=== PATIENT | female | born 1985 | race Caucasian/White ===

== ENCOUNTER 2017-09-02 19:08 | Emergency (ER) | payer OTHER ==
[2017-09-02 19:47] LABS: BILIRUBIN,URINE NEGATIVE (NEGATIVE); GLUCOSE, URINE (UA) NEGATIVE (NEGATIVE); KETONES,URINE (UA) NEGATIVE (NEGATIVE); LEUKOCYTE ESTERASE, URINE NEGATIVE (NEGATIVE); NITRITE,URINE NEGATIVE (NEGATIVE); OCCULT BLOOD,URINE NEGATIVE (NEGATIVE); PROTEIN,URINE NEGATIVE (NEGATIVE); UROBILINOGEN,URINE 0.2 (NORMAL) E.U./dL (NORMAL)
[2017-09-02 19:59] LABS: CLARITY,URINE CLEAR (CLEAR)
[2017-09-02] MEDS ORDERED: ONDANSETRON ODT 4 MG TABLET TL STA (20:14)
[2017-09-02] MEDS ORDERED: DICYCLOMINE 10 MG CAPSULE PO STA (20:25)
[2017-09-02] MEDS ORDERED: ACETAMINOPHEN 325 MG TABLET PO STA (20:25)
--- NOTE | 2017-09-02 20:55 | XRAY Report ---
EXAM: ABDOMINAL SERIES AND PA CHEST EXAM DATE: 09/02/2017 08:36 PM. CLINICAL HISTORY: Hx of hernia and multiple adhesions. Abdominal pain. COMPARISON: None. TECHNIQUE: 2 views abdomen and 1 view chest. FINDINGS: CHEST: Lungs/Pleura: No focal opacities. No effusion or pneumothorax. Mediastinum: Within exam limitations, cardiomediastinal contour is normal. ABDOMEN: Bowel Gas Pattern: Within normal limits. No dilated loops or abnormal fluid levels. Moderate stool i n the descending colon. Free Air: None. IMPRESSION: Within normal limits. [facility] Referring Provider Line: [phone] SITE ID: [id number]
--- NOTE | 2017-09-02 20:55 | XRAY Preliminary Report ---
Exam: XR ABDOMEN ACUTE IMPRESSION: Within normal limits. [facility] SITE ID: [id number]
--- NOTE | 2017-09-02 21:29 | ED Physician Documentation ---
PD HPI ABD PAIN - Stated complaint Stated Complaint: ABD PX/NAUSEA - Chief complaint Chief Complaint: Abd Pain - History obtained from History obtained from: Patient - History of Present Illness Timing - onset: How many weeks ago (3) Timing - details: Gradual onset, Intermittant Quality: Cramping, Aching Location: LLQ Associated symptoms: Diarrhea. No: Nausea, Vomiting Similar symptoms before: Work up / diagnostics Recently seen: Not recently seen - Additional information Additional information: Patient is a 31 year old female with a history of past adhesions and a reported hernia who is presenting to the emergency department for abdominal pain. patient states that she has had left lower quadrant pain for a few weeks. patient states that today she felt generally weak and nauseated as well with the pain. patient states that her is going to get deployed again so she wanted to come in and get checked out. Review of Systems Constitutional: reports: Fever, Chills, Myalgias Eyes: denies: Decreased vision Ears: denies: Ear pain, Drainage/discharge Nose: denies: Rhinorrhea / runny nose, Congestion Throat: denies: Dental pain / toothache, Oral lesions / sores Cardiac: denies: Chest pain / pressure Respiratory: denies: Cough, Wheezing GI: reports: Abdominal Pain, Nausea, Diarrhea. denies: Vomiting : denies: Dysuria, Frequency, Hesitancy Skin: denies: Rash, Lesions Neurologic: reports: Generalized weakness. denies: Focal weakness, Numbness, Difficulty speaking Psychiatric: denies: Depressed, Suicidal Immunocompromised: denies: Immunocompromised PD PAST MEDICAL HISTORY - Past Medical History Past Medical History: Yes Cardiovascular: None Respiratory: None Neuro: Headache/migraine Endocrine/Autoimmune: None GI: GERD ACCESS DIRECTOR: Endometriosis : None HEENT: None Psych: Anxiety, Post traumatic stress disorder Musculoskeletal: None Derm: None - Past Surgical History Past Surgical History: Yes General: Other /ACCESS DIRECTOR: section, Hysterectomy, Oophrectomy - Present Medications Home Medications: Ambulatory Orders Medication Instructions Recorded Confirmed Lisdexamfetamine Dimesylate 60 mg PO DAILY #15 capsule 10/11/15 09/02/17 [Vyvanse] Omeprazole [PriLOSEC] 20 mg PO DAILY 10/11/15 09/02/17 Sertraline HCl [Zoloft] 100 mg PO DAILY 10/11/15 09/02/17 Cetirizine [ZyrTEC] 10 mg PO DAILY #30 tablet 10/20/15 09/02/17 Fluticasone/Salmeterol [Advair 2 puffs INH DAILY 09/02/17 09/02/17 100-50 Diskus] Loratadine [Claritin] 1 tab PO DAILY 09/02/17 09/02/17 Montelukast [Singulair] 1 tab PO DAILY 09/02/17 09/02/17 Ondansetron Odt [Zofran] 4 mg TL Q6H PRN #14 tablet 09/02/17 buPROPion [Wellbutrin Sr] 1 tab PO DAILY 09/02/17 09/02/17 - Allergies Allergies/Adverse Reactions: Allergies Allergy/AdvReac Type Severity Reaction Status Date / Time No Known Drug Allergies Allergy Verified 09/02/17 19:21 - Social History Does the pt smoke?: No Smoking Status: Never smoker Does the pt drink ETOH?: No Does the pt have substance abuse?: No - Immunizations Immunizations are current?: No Immunizations: TDAP >10years/unknown - POLST Patient has POLST: No PD ED PE NORMAL - Vitals Vital signs reviewed: Yes - General General: Alert and oriented X 3, No acute distress, Well developed/nourished - HEENT HEENT: Atraumatic, PERRL, Moist mucous membranes - Neck Neck: Supple, no meningeal sign - Cardiac Cardiac: RRR, No murmur - Respiratory Respiratory: No respiratory distress, Clear bilaterally - Abdomen Abdomen: Soft, Non distended - Derm Derm: Normal color, Warm and dry, No rash - Extremities Extremities: No deformity, Normal ROM s pain - Neuro Neuro: Alert and oriented X 3, No motor deficit, No sensory deficit, Normal speech - Psych Psych: Normal mood PD ED PE EXPANDED - Abdomen Abdomen: Tender to palpation, LLQ. No: Rebound, Guarding Results - Vitals Vitals: Vital Signs - 24 hr 09/02/17 09/02/17 19:21 21:47 Temperature 36.4 C L 37.1 C Heart Rate 72 54 L Respiratory 16 18 Rate Blood Pressure 165/100 H 151/98 H O2 Saturation 96 98 Oxygen O2 Source Room air - Labs Labs: Laboratory Tests 09/02/17 19:40 Urine Color YELLOW Urine Clarity CLEAR Urine pH 6.0 Ur Specific [place] <=1.005 Urine Protein NEGATIVE Urine Glucose (UA) NEGATIVE Urine Ketones NEGATIVE Urine Occult Blood NEGATIVE Urine Nitrite NEGATIVE Urine Bilirubin NEGATIVE Urine Urobilinogen 0.2 (NORMAL) Ur Leukocyte Esterase NEGATIVE Ur Microscopic Review NOT INDICATED Urine Culture Comments NOT INDICATED - Rads (name of study) abdominal x-rays Radiology: Final report received, EMP read contemporaneously (within normal limits) PD MEDICAL DECISION MAKING - ED course Complexity details: reviewed old records, reviewed results, re-evaluated patient , considered differential, d/w patient ED course: Patient was seen and examined at bedside. Urine was collected. patient was treated with zofran and tylenol. Imaging was ordered and within normal limits. patient was made aware of the findings. Patient's pain had improved. patient required no further inpatient work up at this time and was stable for discharge with outpatient follow up. Departure - Departure Disposition: 01 Home, Self Care Clinical Impression: Abdominal pain Condition: Good Instructions: ED Abdominal Pain Unkn Cause Follow-Up: Biju Kurtz MD [Primary Care Provider] - Within 3 Days Prescriptions: Ondansetron Odt [Zofran] 4 mg TL Q6H PRN #14 tablet PRN Reason: Nausea / Vomiting Comments: Your diagnostics today were within normal limits. There is no sign of acute obstruction. You are probably starting to get sick with a virus. You can take the zofran as needed for nausea and over the counter cold and flu medications. You should follow up with your doctor for referral for general surgeon for hernia repair. You may return to the emergency department at any time for new, worsening or uncontrollable symptoms. Discharge Date/Time: 09/02/17 21:50
[2017-09-02 21:50] VITALS: BP 151/98
== END 2017-09-02 21:50 | disposition home or self-care (01) ==
LOC: ED 19:08
DX: R10.32 Left lower quadrant pain (principal)
CPT/HCPCS: 74022; 81003; 99283; A9270; Q0162; 81001; 87086

== ENCOUNTER 2017-09-27 08:48 | Outpatient (CLI) | payer OTHER ==
[2017-09-27 11:38] LABS: BASOPHILS % (AUTO) 0.7 %; EOSINOPHILS % (AUTO) 0.5 %; HGB - HEMOGLOBIN 13.2 g/dL (12.0-16.0); LYMPHOCYTES # (AUTO) 1.5 10^3/uL (1.5-3.5); MEAN CORPUSCULAR HEMOGLOBIN 33.5 pg (27.0-31.0); MEAN CORPUSCULAR HGB CONC 34.5 g/dL (32.0-36.0); MEAN CORPUSCULAR VOLUME 96.9 fL (81.0-99.0); MEAN PLATELET VOLUME 7.2 fL (7.9-10.8); MONOCYTES # (AUTO) 0.4 10^3/uL (0.0-1.0); MONOCYTES % (AUTO) 8.6 %; NEUTROPHILS # (AUTO) 2.7 10^3/uL (1.5-6.6); NEUTROPHILS % (AUTO) 58.2 %; PLT - PLATELET COUNT 295 10^3/uL (130-450); RED BLOOD COUNT 3.94 10^6/uL (4.20-5.40); WHITE BLOOD COUNT 4.6 x10^3/uL (4.8-10.8)
[2017-09-27 12:35] LABS: ALBUMIN 4.7 g/dL (3.2-5.5); ALBUMIN/GLOBULIN RATIO 1.6 (1.0-2.2); ALKALINE PHOSPHATASE 46 IU/L (42-121); ALT ALANINE AMINOTRANSFERASE 18 IU/L (10-60); AST ASPARTATE AMINOTRANSFERASE 21 IU/L (10-42); BILIRUBIN,TOTAL 0.8 mg/dL (0.2-1.0); BUN - BLOOD UREA NITROGEN 12 mg/dL (6-20); CALCIUM 9.2 mg/dL (8.5-10.3); CARBON DIOXIDE - CO2 25 mmol/L (21-32); CHLORIDE 100 mmol/L (101-111); CHOLESTEROL 177 mg/dL; CREATININE 0.9 mg/dL (0.4-1.0); GFR - MDRD 72 (>89); GLUCOSE 88 mg/dL (70-100); HDL CHOLESTEROL 86 mg/dL; SODIUM 137 mmol/L (135-145); TOTAL PROTEIN 7.7 g/dL (6.7-8.2); VLDL CHOLESTEROL 10 mg/dL
[2017-09-27 12:36] LABS: CHOL/HDL RATIO 2.1 (<4.4); LDL CHOLESTEROL,CALCULATED 81 mg/dL; LDL/HDL RATIO 0.9 (<4.4)
[2017-09-27 12:47] LABS: THYROID STIMULATING HORMONE 0.89 uIU/mL (0.34-5.60)
[2017-09-27 13:15] LABS: FOLLICLE STIMULATING HORMONE 14.48 mIU/mL
== END 2017-09-27 08:49 | disposition home or self-care (01) ==
LOC: LAB.F 08:48
PROVIDERS: ATTEND Family Medicine
DX: Z00.00 Encounter for general adult medical examination without abnormal findings (principal); E28.39 Other primary ovarian failure
CPT/HCPCS: 36415; 80053; 80061; 83001; 83721; 84443; 85025

== ENCOUNTER 2018-02-24 11:00 | Outpatient (CLI) | payer OTHER ==
--- NOTE | 2018-02-24 12:38 | XRAY Report ---
Procedure Date: 02/24/2018 Accession Number: [id number] / [id number] Procedure: XR - Skull Complete CPT Code: FULL RESULT: EXAM: Skull Complete DATE: 02/24/2018 11:21 AM CLINICAL HISTORY: SKULL LESION COMPARISON: Sinus film 02/08/2018 TECHNIQUE: AP, Turner, bilateral lateral views. FINDINGS: Bones: Normal. No fractures or bone lesions. Sinuses: Normal. No opacities or fluid levels. Other: Normal. No soft tissue swelling. IMPRESSION: Normal skull radiography. No evident skull lesion. [facility]
== END 2018-02-24 11:01 | disposition home or self-care (01) ==
LOC: DI 11:00
PROVIDERS: ATTEND Family Medicine
DX: M89.9 Disorder of bone, unspecified (principal)
CPT/HCPCS: 70260

== ENCOUNTER 2018-05-08 09:47 | Emergency (ER) | payer OTHER ==
[2018-05-08 09:57] VITALS: BP 119/83
--- NOTE | 2018-05-08 11:10 | XRAY Report ---
Reason: coughed up bright blood. Procedure Date: 05/08/2018 Accession Number: [id number] / [id number] Procedure: XR - Chest 2 View X-Ray CPT Code: 98736 FULL RESULT: EXAM: CHEST RADIOGRAPHY EXAM DATE: 05/08/2018 11:04 AM. CLINICAL HISTORY: Coughed up bright blood. COMPARISON: Abdomen acute 09/02/2017 8:26 PM. TECHNIQUE: 2 views. FINDINGS: Lungs/Pleura: No focal opacities evident. No pleural effusion. No pneumothorax. Normal volumes. Mediastinum: Heart and mediastinal contours are unremarkable. Other: None. IMPRESSION: No acute cardiopulmonary abnormality. [facility]
[2018-05-08] MEDS ORDERED: DEXAMETHASONE 10 MG/ML VIAL PO STA (11:23)
--- NOTE | 2018-05-08 11:26 | ED Physician Documentation ---
PD HPI URI - Stated complaint Stated Complaint: COUGHING UP BLOOD - Chief complaint Chief Complaint: Heent - History obtained from History obtained from: Patient - History of Present Illness Timing - onset: How many days ago (3) Timing duration: Days (3) Timing details: Gradual onset, Still present Associated symptoms: Nasal congestion, Rhinorrhea, Dry cough, Hemoptysis, Dyspnea. No: Fever, Chills, Sweats Contributing factors: No: Sick contact Improves by: MDI/nebulizer Worsened by: Activity Similar symptoms before: Diagnosis (asthma) Recently seen: Not recently seen - Additional information Additional information: 32-year-old female with a history of asthma that is well controlled with use of an Advair inhaler has not had her Advair inhaler for more than a month. She recently developed a cough and nasal congestion she has had a lot of clear drainage from the nose she has had a little bit of a sore throat and some ear pain as well associated with this and she coughed hard enough 3 days ago to cough up some blood. She has continued congestion and is concerned about the blood in the sputum. She states that it was a small amount of blood and this is continued to have a small amount of pink tinge to her sputum. Her pharmacy is out of her Advair and she states that she usually uses her rescue inhaler about 3 times per week and she has not had to use that anymore often than that with this onset of symptoms. 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 : None HEENT: None Psych: Anxiety, Post traumatic stress disorder Musculoskeletal: None Derm: None Other Past Medical History: 2001 diagnosed with latent tuberculosis, was on medication for a month - Past Surgical History Past Surgical History: Yes General: Other /ROOM SERVICE MANAGER: section, Hysterectomy, Oophrectomy - Present Medications Home Medications: Ambulatory Orders Medication Instructions Recorded Confirmed Lisdexamfetamine Dimesylate 60 mg PO DAILY #15 capsule 10/11/15 09/02/17 [Vyvanse] Omeprazole [PriLOSEC] 20 mg PO DAILY 10/11/15 09/02/17 Fluticasone/Salmeterol [Advair 2 puffs INH DAILY 09/02/17 09/02/17 100-50 Diskus] Loratadine [Claritin] 1 tab PO DAILY 09/02/17 09/02/17 Montelukast [Singulair] 1 tab PO DAILY 09/02/17 09/02/17 buPROPion [Wellbutrin Sr] 1 tab PO DAILY 09/02/17 09/02/17 Lisinopril 10 mg PO 05/08/18 - Allergies Allergies/Adverse Reactions: Allergies Allergy/AdvReac Type Severity Reaction Status Date / Time No Known Drug Allergies Allergy Verified 05/08/18 09:57 - Social History Does the pt smoke?: No Smoking Status: Never smoker Does the pt drink ETOH?: Yes ETOH Use: Wine Does the pt have substance abuse?: No - Immunizations Immunizations are current?: No Immunizations: TDAP >10years/unknown - POLST Patient has POLST: No PD ED PE NORMAL - Vitals Vital signs reviewed: Yes (hypertensive mild ) - General General: Alert and oriented X 3, No acute distress, Well developed/nourished - HEENT HEENT: Atraumatic, PERRL, EOMI, Ears normal, Moist mucous membranes, Pharynx benign, Dentition benign - Neck Neck: Supple, no meningeal sign, No bony TTP - Cardiac Cardiac: RRR, No murmur - Respiratory Respiratory: No respiratory distress, Other (course breath sounds bilat. Chest wall pain laterally and posteriorly on the left ) - Abdomen Abdomen: Soft, Non tender - Back Back: No CVA TTP, No spinal TTP - Derm Derm: Normal color, Warm and dry, No rash - Extremities Extremities: No deformity, No edema - Neuro Neuro: Alert and oriented X 3, No motor deficit, No sensory deficit, Normal speech Eye Opening: Spontaneous Motor: Obeys Commands Verbal: Oriented GCS Score: 15 - Psych Psych: Normal mood, Normal affect Results - Vitals Vitals: Vital Signs - 24 hr 05/08/18 09:55 Temperature 36.2 C L Heart Rate 62 Respiratory 16 Rate Blood Pressure 119/83 H O2 Saturation 99 Oxygen O2 Source Room air - Rads (name of study) 2 view chest Radiology: Prelim report reviewed (Impression: No acute cardiopulmonary abnormality. ), EMP read indepedently, See rad report PD MEDICAL DECISION MAKING - ED course Complexity details: reviewed old records, considered differential, d/w patient ED course: 32-year-old female with a history of asthma has had nasal congestion cough clear phlegm from the nose and shortness of breath. She has been off of her Advair inhaler for more than a month. She has coughed up some blood and has a chest x- ray which is unremarkable. Here in the emergency department she has some nasal quality to her voice but otherwise has no inflammation to the TMs or pharynx and no yellow drainage. I suspect her symptoms are all allergy related and we have given her dose of dexamethasone here in the emergency department and she will start back on her Advair inhaler. - Sepsis Event Vital Signs: Vital Signs - 24 hr 05/08/18 09:55 Temperature 36.2 C L Heart Rate 62 Respiratory 16 Rate Blood Pressure 119/83 H O2 Saturation 99 Oxygen O2 Source Room air Departure - Departure Disposition: Home, Self Care Clinical Impression: Allergic asthma Qualifiers: Asthma severity: mild Asthma persistence: intermittent Asthma complication type: with acute exacerbation Qualified Code(s): J45.21 - Mild intermittent asthma with (acute) exacerbation Condition: Stable Instructions: ED Reactive Airway Disease Follow-Up: Biju Kurtz MD [Primary Care Provider] -
[2018-05-08] MEDS ORDERED: CHERRY SYRUP 10 ML UDC PO ONE (11:42)
== END 2018-05-08 11:50 | disposition home or self-care (01) ==
LOC: ED 09:47
DX: J45.21 Mild intermittent asthma with (acute) exacerbation (principal)
CPT/HCPCS: 71046; 99282; A9270

== ENCOUNTER 2018-08-02 10:29 | Emergency (ER) | payer OTHER ==
--- NOTE | 2018-08-02 12:31 | CT Report ---
Reason: fall head Procedure Date: 08/02/2018 Accession Number: [id number] / [id number] Procedure: CT - Head W/O CPT Code: FULL RESULT: EXAM: CT HEAD EXAM DATE: 08/02/2018 12:02 PM. CLINICAL HISTORY: Fall, hit head, pain COMPARISON: None. TECHNIQUE: Multiaxial CT images were obtained from the foramen magnum to the vertex. Reformats: Sagittal and coronal. IV contrast: None. In accordance with CT protocol optimization, one or more of the following dose reduction techniques were utilized for this exam: automated exposure control, adjustment of mA and/or KV based on patient size, or use of iterative reconstructive technique. FINDINGS: Parenchyma: No acute intracranial abnormality identified. No acute hemorrhage, mass-effect, or midline shift. Almonet-white differentiation appears maintained. Extraaxial Spaces: No acute extra-axial collection. Ventricles: Normal in size and position. Sinuses and Orbits: Imaged paranasal sinuses, orbits, and mastoids show no significant abnormality. Bones: No depressed skull fracture. Other: None. IMPRESSION: No acute intracranial abnormality identified. [facility]
--- NOTE | 2018-08-02 13:08 | ED Physician Documentation ---
PD HPI HEAD INJURY - Stated complaint Stated Complaint: HEAD INJ WITH VOMITING - Chief complaint Chief Complaint: Neuro - History obtained from History obtained from: Patient - History of Present Illness Mechanism of head injury: Fell Where head injury occurred: Home Timing - onset: How many days ago (5) Pain level max: 6 Pain level now: 0 Location of injury: Front Quality of pain: Throbbing Associated symptoms: Nausea / vomiting. No: LOC, AMS, Amnesia, Neck pain, Paresthesias, Seizures, Ear drainage, Nasal drainage Symptoms improve with: Nothing Symptoms worsen with: Other (Nothing) Contributing factors: No: Anticoagulated, Intoxicated Similar symptoms before: Has not had sx before Recently seen: Not recently seen - Additional information Additional information: 32-year-old female with history of hypertension related to her preeclampsia years ago, endometriosis resulting to hysterectomy here with complaint of tripping over a lawnmower at her house while she was walking in the dark 5 days ago. Patient stated she landed front first on her forehead. Since then she has had frontal headache that was not going away And she feels she is kind of slow in doing things. She stated she had one episode of vomiting on Tuesday and another one on Tuesday. However she thought it might have been related to her taking Motrin. Review of Systems Ten Systems: 10 systems reviewed and negative Constitutional: denies: Fever, Chills, Myalgias Eyes: denies: Loss of vision Nose: denies: Congestion Musculoskeletal: denies: Neck pain, Back pain, Extremity pain Neurologic: reports: Headache, Head injury. 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 : None HEENT: None Psych: Anxiety, Post traumatic stress disorder Musculoskeletal: None Derm: None - Past Surgical History Past Surgical History: Yes General: Other /PERSONAL INJURY ATTORNEY: section, Hysterectomy, Oophrectomy - Present Medications Home Medications: Ambulatory Orders Medication Instructions Recorded Confirmed Lisdexamfetamine Dimesylate 60 mg PO DAILY #15 capsule 10/11/15 09/02/17 [Vyvanse] Omeprazole [PriLOSEC] 20 mg PO DAILY 10/11/15 09/02/17 Fluticasone/Salmeterol [Advair 2 puffs INH DAILY 09/02/17 09/02/17 100-50 Diskus] Loratadine [Claritin] 1 tab PO DAILY 09/02/17 09/02/17 Montelukast [Singulair] 1 tab PO DAILY 09/02/17 09/02/17 buPROPion [Wellbutrin Sr] 1 tab PO DAILY 09/02/17 09/02/17 RX: Lisinopril 10 mg PO 05/08/18 RX: Doxycycline Hyclate 08/02/18 Sumatriptan Succinate [Imitrex] PRN 08/02/18 - Allergies Allergies/Adverse Reactions: Allergies Allergy/AdvReac Type Severity Reaction Status Date / Time No Known Drug Allergies Allergy Verified 08/02/18 10:45 - Social History Does the pt smoke?: No Smoking Status: Never smoker Does the pt drink ETOH?: Yes Does the pt have substance abuse?: No - Immunizations Immunizations are current?: No Immunizations: TDAP >10years/unknown - POLST Patient has POLST: No PD ED PE NORMAL - Vitals Vital signs reviewed: Yes - General General: Alert and oriented X 3, No acute distress, Well developed/nourished - HEENT HEENT: Atraumatic, PERRL, EOMI, Ears normal, Moist mucous membranes, Pharynx benign - Neck Neck: Supple, no meningeal sign, No bony TTP - Cardiac Cardiac: RRR, No murmur - Respiratory Respiratory: Clear bilaterally - Abdomen Abdomen: Normal bowel sounds, Soft, Non tender, Non distended - Back Back: No CVA TTP, No spinal TTP - Derm Derm: Warm and dry - Extremities Extremities: No deformity - Neuro Neuro: Alert and oriented X 3, mechanical designer 2-12 intact, No motor deficit, No sensory deficit, Normal speech - Psych Psych: Normal mood, Normal affect Results - Vitals Vitals: Vital Signs - 24 hr 08/02/18 08/02/18 10:41 13:09 Temperature 36.8 C 36.6 C Heart Rate 72 70 Respiratory 16 16 Rate Blood Pressure 146/92 H 138/74 H O2 Saturation 100 100 Oxygen O2 Source Room air PD MEDICAL DECISION MAKING - ED course Complexity details: reviewed results, re-evaluated patient, considered differential, d/w patient ED course: 1300 patient sitting in the chair in no acute distress reading a book. States does not require any pain medication. No nausea or vomiting in the ER. Patient was informed of negative CT head scan.Discussed care for close head injury and possibly concussion. Departure - Departure Disposition: 01 Home, Self Care Clinical Impression: Concussion Qualifiers: Encounter type: initial encounter Loss of consciousness presence/duration: without LOC Qualified Code(s): S06.0X0A - Concussion without loss of consciousness, initial encounter Head injury Qualifiers: Encounter type: initial encounter Qualified Code(s): S09.90XA - Unspecified injury of head, initial encounter Condition: Stable Instructions: ED Concussion, ED Head Injury Closed Comments: You may take Tylenol or Motrin for pain. Take it easy. Avoid falling or getting hurt too soon. Maintain safety. Follow-up with your primary doctor in a week or 2 if worse return to the emergency room. Discharge Date/Time: 08/02/18 13:09
[2018-08-02 14:24] VITALS: BP 138/74
== END 2018-08-02 13:09 | disposition home or self-care (01) ==
LOC: ED 10:29
DX: S06.0X0A Concussion without loss of consciousness, initial encounter (principal); W18.09XA Striking against other object with subsequent fall, initial encounter; Y93.01 Activity, walking, marching and hiking; Y92.009 Unspecified place in unspecified non-institutional (private) residence as the place of occurrence of the external cause
CPT/HCPCS: 70450; 99282; 99283

== ENCOUNTER 2018-09-14 12:23 | Emergency (ER) | payer OTHER ==
--- NOTE | 2018-09-14 13:19 | XRAY Report ---
Reason: cough, exacerbation of asthma Procedure Date: 09/14/2018 Accession Number: [id number] / [id number] Procedure: XR - Chest 2 View X-Ray CPT Code: 89274 FULL RESULT: EXAM: CHEST RADIOGRAPHY EXAM DATE: 09/14/2018 12:53 PM. CLINICAL HISTORY: Cough, exacerbation of asthma. COMPARISON: Chest 2 views 05/08/2018 10:53 AM. TECHNIQUE: 2 views. FINDINGS: Lungs/Pleura: No focal opacities evident. No pleural effusion. No pneumothorax. Normal volumes. Mediastinum: Heart and mediastinal contours are unremarkable. Other: None. IMPRESSION: Normal 2-view chest radiography. [facility]
--- NOTE | 2018-09-14 14:08 | ED Physician Documentation ---
PD HPI DYSPNEA - Stated complaint Stated Complaint: DIFF BREATHING - Chief complaint Chief Complaint: Resp - History obtained from History obtained from: Patient - History of Present Illness Timing - onset: How many weeks ago (6) Timing - onset during: Rest Timing - duration: Weeks (6) Timing - details: Gradual onset, Still present, Waxing and waning Inciting event(s): Allergic rxn/anaphylaxis Improved by: Inhaler/neb Worsened by: Exertion, Coughing Associated symptoms: Cough, Wheezing. No: Palpitations, Diaphoresis, Bilateral edema, Unilateral edema Similar symptoms before: Diagnosis (asthma) Recently seen: Not recently seen - Additional information Additional information: 33-year-old female with a history of persistent allergic asthma has had an increase in her cough for the past 6 weeks and she has had to use her rescue inhaler 4 times today. She went to go see her doctor and was told to come to the emergency department. She is not coughing up any phlegm she has not had a fever and she denies any sore throat or myalgias. Review of Systems Constitutional: denies: Fever, Chills Eyes: denies: Decreased vision Ears: denies: Ear pain Nose: reports: Congestion. 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: Endometriosis : None HEENT: None Psych: Anxiety, Post traumatic stress disorder Musculoskeletal: None Derm: None - Past Surgical History Past Surgical History: Yes General: Other /BUSINESS DEVELOPMENT ENGINEER: section, Hysterectomy, Oophrectomy - Present Medications Home Medications: Ambulatory Orders Medication Instructions Recorded Confirmed Lisdexamfetamine Dimesylate 60 mg PO DAILY #15 capsule 10/11/15 09/02/17 [Vyvanse] Omeprazole [PriLOSEC] 20 mg PO DAILY 10/11/15 09/02/17 Fluticasone/Salmeterol [Advair 2 puffs INH DAILY 09/02/17 09/02/17 100-50 Diskus] Loratadine [Claritin] 1 tab PO DAILY 09/02/17 09/02/17 Montelukast [Singulair] 1 tab PO DAILY 09/02/17 09/02/17 buPROPion [Wellbutrin Sr] 1 tab PO DAILY 09/02/17 09/02/17 Lisinopril 10 mg PO 05/08/18 Doxycycline Hyclate 08/02/18 Sumatriptan Succinate [Imitrex] PRN 08/02/18 Albuterol 2.5 mg INH Q4H PRN #30 neb 09/14/18 predniSONE [Deltasone] 10 mg PO ONCE #26 tablet 09/14/18 - Allergies Allergies/Adverse Reactions: Allergies Allergy/AdvReac Type Severity Reaction Status Date / Time seasonal allergies Allergy Unknown Uncoded 08/24/18 10:39 - Social History Does the pt smoke?: No Smoking Status: Never smoker Does the pt drink ETOH?: Yes Does the pt have substance abuse?: No - Immunizations Immunizations are current?: No Immunizations: TDAP >10years/unknown - POLST Patient has POLST: No PD ED PE NORMAL - Vitals Vital signs reviewed: Yes (hypertensive mild ) - General General: Alert and oriented X 3, No acute distress, Well developed/nourished, Other (nasal quality to voice. ) - HEENT HEENT: Atraumatic, PERRL, EOMI, Ears normal, Moist mucous membranes, Pharynx benign, Dentition benign - Neck Neck: Supple, no meningeal sign, No bony TTP - Cardiac Cardiac: RRR, No murmur - Respiratory Respiratory: No respiratory distress, Other (coarse insp and exp resp. ) - Abdomen Abdomen: Soft, Non tender - Back Back: No CVA TTP, No spinal TTP - Derm Derm: Normal color, Warm and dry, No rash - Extremities Extremities: No deformity, No edema - Neuro Neuro: Alert and oriented X 3, regular senior care provider 2-12 intact, No motor deficit, No sensory deficit, Normal speech Eye Opening: Spontaneous Motor: Obeys Commands Verbal: Oriented GCS Score: 15 - Psych Psych: Normal mood, Normal affect Results - Vitals Vitals: Vital Signs - 24 hr 09/14/18 12:29 Temperature 36 C L Heart Rate 76 Respiratory 20 Rate Blood Pressure 131/74 H O2 Saturation 99 Oxygen O2 Source Room air PD MEDICAL DECISION MAKING - ED course Complexity details: considered differential, d/w patient ED course: 33-year-old female with a history of asthma has had use her rescue inhaler 4 times since yesterday. She has history of allergic asthma and today she does not have any sign of infection. She does not feel that she has an infection. We will place her on a course of prednisone and I will write a prescription for some fishes for use in the nebulizer machine. Departure - Departure Disposition: Home, Self Care Clinical Impression: Allergic asthma Qualifiers: Asthma severity: moderate Asthma persistence: persistent Asthma complication type: with acute exacerbation Qualified Code(s): J45.41 - Moderate persistent asthma with (acute) exacerbation Condition: Stable Instructions: ED Bronchitis Asthmatic Follow-Up: Biju Kurtz MD [Primary Care Provider] - Prescriptions: Albuterol 2.5 mg INH Q4H PRN #30 neb PRN Reason: Wheezing predniSONE [Deltasone] 10 mg PO ONCE #26 tablet
[2018-09-14 14:19] VITALS: BP 127/81
== END 2018-09-14 14:20 | disposition home or self-care (01) ==
LOC: ED 12:23
DX: J45.41 Moderate persistent asthma with (acute) exacerbation (principal)
CPT/HCPCS: 71046; 99283

== ENCOUNTER 2019-06-11 16:39 | Emergency (ER) | payer OTHER ==
[2019-06-11 19:15] LABS: BASOPHILS % (AUTO) 0.4 %; EOSINOPHILS # (AUTO) 0.1 10^3/uL (0.0-0.7); EOSINOPHILS % (AUTO) 0.8 %; HGB - HEMOGLOBIN 11.8 g/dL (12.0-16.0); LYMPHOCYTES # (AUTO) 2.7 10^3/uL (1.5-3.5); LYMPHOCYTES % (AUTO) 35.3 %; MEAN CORPUSCULAR HEMOGLOBIN 32.1 pg (27.0-31.0); MEAN CORPUSCULAR HGB CONC 32.8 g/dL (32.0-36.0); MEAN CORPUSCULAR VOLUME 97.8 fL (81.0-99.0); MEAN PLATELET VOLUME 8.8 fL (7.9-10.8); MONOCYTES # (AUTO) 0.5 10^3/uL (0.0-1.0); MONOCYTES % (AUTO) 6.3 %; NEUTROPHILS # (AUTO) 4.4 10^3/uL (1.5-6.6); NEUTROPHILS % (AUTO) 56.8 %; PLT - PLATELET COUNT 255 10^3/uL (130-450); RED BLOOD COUNT 3.68 10^6/uL (4.20-5.40); RED CELL DISTRIBUTION WIDTH 12.4 % (12.0-15.0); WHITE BLOOD COUNT 7.7 x10^3/uL (4.8-10.8)
[2019-06-11 19:29] LABS: PT - PROTHROMBIN TIME 11.4 secs (9.9-12.6)
[2019-06-11 19:42] LABS: HCG,QUALITATIVE BLOOD NEGATIVE
[2019-06-11 20:00] LABS: ALBUMIN 4.4 g/dL (3.2-5.5); ALBUMIN/GLOBULIN RATIO 1.4 (1.0-2.2); BILIRUBIN,TOTAL 0.4 mg/dL (0.2-1.0); CALCIUM 9.2 mg/dL (8.5-10.3); CREATININE 0.6 mg/dL (0.4-1.0); TOTAL PROTEIN 7.5 g/dL (6.7-8.2)
--- NOTE | 2019-06-11 20:10 | ED Physician Documentation ---
History of Present Illness - Stated complaint Stated Complaint: NOSE BLEEDS, BRUISING, SPOTS ON LT LEG - Chief complaint Chief Complaint: General - Additonal information Additional information: This is a 33-year-old female who presents with some recurrent nosebleeds, as well as easy bruising on her thigh. Patient states that she typically does not have any issues with easy bleeding or bruising, but she noticed that she had a cut on her left foot which seemed to ooze longer than normal, she also had some bruising on her left thigh which was more extensive than normal, she noticed some small red beltran around the bruise as well. Given this constellation of symptoms she came into the emergency department. She denies any history of clotting disorder, or low platelets. No fever, weight loss, night sweats. 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 : None HEENT: None Psych: Anxiety, Post traumatic stress disorder Musculoskeletal: None Derm: None - Past Surgical History Past Surgical History: Yes General: Other /GENERAL STORE MANAGER: section, Hysterectomy, Oophrectomy - Present Medications Home Medications: Ambulatory Orders Medication Instructions Recorded Confirmed Lisdexamfetamine Dimesylate 60 mg PO DAILY #15 capsule 10/11/15 09/02/17 [Vyvanse] Omeprazole [PriLOSEC] 20 mg PO DAILY 10/11/15 09/02/17 Fluticasone/Salmeterol [Advair 2 puffs INH DAILY 09/02/17 09/02/17 100-50 Diskus] Loratadine [Claritin] 1 tab PO DAILY 09/02/17 09/02/17 Montelukast [Singulair] 1 tab PO DAILY 09/02/17 09/02/17 buPROPion [Wellbutrin Sr] 1 tab PO DAILY 09/02/17 09/02/17 Lisinopril 10 mg PO 05/08/18 Doxycycline Hyclate 08/02/18 Sumatriptan Succinate [Imitrex] PRN 08/02/18 Albuterol 2.5 mg INH Q4H PRN #30 neb 09/14/18 predniSONE [Deltasone] 10 mg PO ONCE #26 tablet 09/14/18 - Allergies Allergies/Adverse Reactions: Allergies Allergy/AdvReac Type Severity Reaction Status Date / Time seasonal allergies Allergy Unknown Uncoded 08/24/18 10:39 - Social History Does the pt smoke?: No Smoking Status: Never smoker Does the pt drink ETOH?: Yes Does the pt have substance abuse?: No - Immunizations Immunizations are current?: Yes Immunizations: TDAP >10years/unknown - POLST Patient has POLST: No PD ED PE NORMAL - Vitals Vital signs reviewed: Yes - General General: Alert and oriented X 3, No acute distress - HEENT HEENT: PERRL - Neck Neck: Supple, no meningeal sign - Cardiac Cardiac: RRR - Derm Derm: Other (Over the left thigh there is a 2 x 3 cm area of ecchymosis, scattered around this are some nonblanching red petechiae. There are no petechiae on the bilateral lower extremities in the shins or ankles. Her upper extremities also have no rash.) - Extremities Extremities: No deformity - Neuro Neuro: Alert and oriented X 3 - Psych Psych: Normal mood, Normal affect Results - Vitals Vitals: Vital Signs - 24 hr 06/11/19 06/11/19 16:49 20:20 Temperature 36.6 C 36.7 C Heart Rate 68 55 L Respiratory 18 18 Rate Blood Pressure 151/98 H 125/89 H O2 Saturation 98 99 Oxygen O2 Source Room air - Labs Labs: Laboratory Tests 06/11/19 06/11/19 06/11/19 19:10 19:10 19:10 WBC 7.7 RBC 3.68 L Hgb 11.8 L Hct 36.0 L MCV 97.8 MCH 32.1 H MCHC 32.8 RDW 12.4 Plt Count 255 MPV 8.8 Neut # (Auto) 4.4 Lymph # (Auto) 2.7 [place] # (Auto) 0.5 Eos # (Auto) 0.1 Baso # (Auto) 0.0 Absolute Nucleated RBC 0.00 Nucleated RBC % 0.0 PT 11.4 INR 1.0 Sodium 138 Potassium 3.5 Chloride 104 Carbon Dioxide 24 Anion Gap 10.0 BUN 11 Creatinine 0.6 Estimated GFR (MDRD) 114 Glucose 94 Calcium 9.2 Total Bilirubin 0.4 AST 20 ALT 16 Alkaline Phosphatase 48 Total Protein 7.5 Albumin 4.4 Globulin 3.1 Albumin/Globulin Ratio 1.4 Lipase 41 Serum HCG, Qual 06/11/19 19:10 WBC RBC Hgb Hct MCV MCH MCHC RDW Plt Count MPV Neut # (Auto) Lymph # (Auto) [place] # (Auto) Eos # (Auto) Baso # (Auto) Absolute Nucleated RBC Nucleated RBC % PT INR Sodium Potassium Chloride Carbon Dioxide Anion Gap BUN Creatinine Estimated GFR (MDRD) Glucose Calcium Total Bilirubin AST ALT Alkaline Phosphatase Total Protein Albumin Globulin Albumin/Globulin Ratio Lipase Serum HCG, Qual NEGATIVE PD MEDICAL DECISION MAKING - ED course Complexity details: considered differential (Thrombocytopenia, blood dyscrasia, leukemia, malignancy, coagulopathy.) ED course: On exam patient is well-appearing, she does have an area of bruising over her thigh with what appears to be some scattered petechiae around it, though these may be small blood vessels or bruising. There is no other petechiae on exam on other limbs. Given her recurrent nosebleeds and other symptoms of easy bleeding/bruising, labs were drawn. CBC shows an anemia which is stable with patient's baseline, normal white blood cell count, and normal platelets. Her INR is also normal. I discussed with the patient that these labs appear reassuring, and I am not sure what the causes of her easy bruising and bleeding. Inherited clotting disorders unlikely given that her symptoms only began recently. She does not take any blood thinning medications. I recommend that she follow closely with her primary care provider, and if she is having continued symptoms, worsening bleeding, or any other new concerning symptoms she can return to the emergency department. Departure - Departure Disposition: 01 Home, Self Care Clinical Impression: Bruising, Epistaxis Condition: Good Follow-Up: Biju Kurtz MD [Primary Care Provider] - Within 1 week Comments: You were seen today for easy bruising, easy bleeding, and recurrent nosebleeds. Your platelet counts look normal today, and your INR is normal as well. You did have a anemia, but this is only slightly worse than usual. Your hemoglobin today was 11.8. It is unclear what the cause of your symptoms, please follow-up closely with your primary care provider, and if you are developing continuing/persistent bleeding, fever, Nosebleeds that do not stop with direct pressure, or other new concerning symptoms please return to the emergency department Discharge Date/Time: 06/11/19 20:21
[2019-06-11 20:21] VITALS: BP 125/89
== END 2019-06-11 20:21 | disposition home or self-care (01) ==
LOC: ED 16:39
DX: R23.3 Spontaneous ecchymoses (principal); R04.0 Epistaxis; D64.9 Anemia, unspecified; I10 Essential (primary) hypertension
CPT/HCPCS: 36415; 80053; 83690; 84703; 85025; 85610; 99283

== ENCOUNTER 2019-09-21 11:52 | Emergency (ER) | payer OTHER ==
[2019-09-21] MEDS ORDERED: IBUPROFEN 600 MG TABLET PO STA (13:30)
--- NOTE | 2019-09-21 13:34 | ED Physician Documentation ---
History of Present Illness - Stated complaint Stated Complaint: CHEST PAIN, HEADACHE - Chief complaint Chief Complaint: General - History obtained from History obtained from: Patient (34-year-old woman with history of hypertension notes a "ping-ting" sensation in her heart that is been intermittent for the last few months. It is nonexertional. The timing is random. Over the last week she has had a minimally productive cough and over the last day has had left-sided back pain and a headache. The headache is mild. The back pain is more worrisome for her. She is mildly short of breath. Denies pedal edema or calf pain. No recent surgeries or travel. No history of DVT or PE. She had a remote hysterectomy.) Review of Systems Constitutional: denies: Fever, Chills, Myalgias Cardiac: reports: Chest pain / pressure. 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 : None HEENT: None Psych: Anxiety, Post traumatic stress disorder Musculoskeletal: None Derm: None - Past Surgical History Past Surgical History: Yes General: Other /POLE FRAMER: section, Hysterectomy, Oophrectomy - Present Medications Home Medications: Ambulatory Orders Medication Instructions Recorded Confirmed Lisdexamfetamine Dimesylate 60 mg PO DAILY #15 capsule 10/11/15 09/02/17 [Vyvanse] Omeprazole [PriLOSEC] 20 mg PO DAILY 10/11/15 09/02/17 Fluticasone/Salmeterol [Advair 2 puffs INH DAILY 09/02/17 09/02/17 100-50 Diskus] Loratadine [Claritin] 1 tab PO DAILY 09/02/17 09/02/17 Montelukast [Singulair] 1 tab PO DAILY 09/02/17 09/02/17 buPROPion [Wellbutrin Sr] 1 tab PO DAILY 09/02/17 09/02/17 lisinopriL [Lisinopril] 10 mg PO 05/08/18 Doxycycline Hyclate 08/02/18 Sumatriptan Succinate [Imitrex] PRN 08/02/18 Albuterol 2.5 mg INH Q4H PRN #30 neb 09/14/18 predniSONE [Deltasone] 10 mg PO ONCE #26 tablet 09/14/18 guaiFENesin/CODEINE [Robitussin AC] 5 - 10 ml PO Q6H PRN #120 ml 09/21/19 - Allergies Allergies/Adverse Reactions: Allergies Allergy/AdvReac Type Severity Reaction Status Date / Time seasonal allergies Allergy Unknown Uncoded 09/21/19 12:06 - Social History Does the pt smoke?: No Smoking Status: Never smoker Does the pt drink ETOH?: Yes Does the pt have substance abuse?: No - Immunizations Immunizations are current?: Yes Immunizations: TDAP >10years/unknown - POLST Patient has POLST: No PD ED PE NORMAL - Vitals Vital signs reviewed: Yes - General General: Alert and oriented X 3, No acute distress - HEENT HEENT: PERRL, EOMI - Neck Neck: Supple, no meningeal sign, No bony TTP - Cardiac Cardiac: RRR, No murmur, Strong equal pulses (Radial) - Respiratory Respiratory: No respiratory distress, Clear bilaterally - Abdomen Abdomen: Non tender - Extremities Extremities: No edema, No calf tenderness / cord - Neuro Neuro: Alert and oriented X 3, Normal speech Results - Vitals Vitals: Vital Signs - 24 hr 09/21/19 12:06 Temperature 36.6 C Heart Rate 73 Respiratory 15 Rate Blood Pressure 145/84 H O2 Saturation 99 Oxygen O2 Source Room air - EKG (time done) 1218 Rate: Rate (enter#) (66) Rhythm: NSR [place]: Normal Intervals: Normal [place] QRS: Normal Ischemia: Normal ST segments Computer interpretation: Agree with computer - Labs Labs: Laboratory Tests 09/21/19 09/21/19 09/21/19 13:49 13:49 13:49 WBC 7.1 RBC 3.90 L Hgb 13.1 Hct 38.2 MCV 97.9 MCH 33.6 H MCHC 34.3 RDW 12.2 Plt Count 234 MPV 9.3 Neut # (Auto) 4.5 Lymph # (Auto) 2.0 [place] # (Auto) 0.5 Eos # (Auto) 0.1 Baso # (Auto) 0.0 Absolute Nucleated RBC 0.00 Nucleated RBC % 0.0 D-Dimer < 200.0 L Sodium 135 Potassium 3.4 L Chloride 101 Carbon Dioxide 23 Anion Gap 11.0 BUN 13 Creatinine 0.8 Estimated GFR (MDRD) 82 L Glucose 90 Calcium 8.9 Total Bilirubin 0.6 AST 22 ALT 16 Alkaline Phosphatase 44 Troponin I High Sens Total Protein 8.0 Albumin 4.7 Globulin 3.3 Albumin/Globulin Ratio 1.4 Lipase 43 09/21/19 13:49 WBC RBC Hgb Hct MCV MCH MCHC RDW Plt Count MPV Neut # (Auto) Lymph # (Auto) [place] # (Auto) Eos # (Auto) Baso # (Auto) Absolute Nucleated RBC Nucleated RBC % D-Dimer Sodium Potassium Chloride Carbon Dioxide Anion Gap BUN Creatinine Estimated GFR (MDRD) Glucose Calcium Total Bilirubin AST ALT Alkaline Phosphatase Troponin I High Sens 3.9 Total Protein Albumin Globulin Albumin/Globulin Ratio Lipase - Rads (name of study) 2 view chest x-ray Radiology: EMP read contemporaneously (Normal) PD MEDICAL DECISION MAKING - ED course ED course: 34-year-old woman with atypical chest and back pain, PE and dissection were considered but very unlikely after a negative d-dimer and normal chest x-ray. ACS is unlikely given the atypical story, nonischemic EKG and negative troponin. Seems more likely that she has a respiratory viral illness with muscle strain. Conservative care was advised. Departure - Departure Disposition: 01 Home, Self Care Clinical Impression: Atypical chest pain, Cough Condition: Good Record reviewed to determine appropriate education?: Yes Instructions: ED Chest Pain NonCardiac Prescriptions: guaiFENesin/CODEINE [Robitussin AC] 5 - 10 ml PO Q6H PRN #120 ml PRN Reason: Cough Comments: You were seen today for very chest pain and back pain, the work-up suggests there is no evidence of aortic dissection, pulmonary embolism, or pneumonia. Also no evidence of heart disease. Return for new or worsening symptoms. Follow-up with your doctor next week for recheck.
[2019-09-21 14:10] LABS: BASOPHILS % (AUTO) 0.3 %; EOSINOPHILS # (AUTO) 0.1 10^3/uL (0.0-0.7); EOSINOPHILS % (AUTO) 0.7 %; HGB - HEMOGLOBIN 13.1 g/dL (12.0-16.0); LYMPHOCYTES % (AUTO) 27.9 %; MEAN CORPUSCULAR HEMOGLOBIN 33.6 pg (27.0-31.0); MEAN CORPUSCULAR HGB CONC 34.3 g/dL (32.0-36.0); MEAN CORPUSCULAR VOLUME 97.9 fL (81.0-99.0); MEAN PLATELET VOLUME 9.3 fL (7.9-10.8); MONOCYTES # (AUTO) 0.5 10^3/uL (0.0-1.0); MONOCYTES % (AUTO) 6.9 %; NEUTROPHILS # (AUTO) 4.5 10^3/uL (1.5-6.6); NEUTROPHILS % (AUTO) 63.9 %; PLT - PLATELET COUNT 234 10^3/uL (130-450); RED CELL DISTRIBUTION WIDTH 12.2 % (12.0-15.0); WHITE BLOOD COUNT 7.1 x10^3/uL (4.8-10.8)
[2019-09-21 14:20] LABS: ALBUMIN 4.7 g/dL (3.2-5.5); ALBUMIN/GLOBULIN RATIO 1.4 (1.0-2.2); BILIRUBIN,TOTAL 0.6 mg/dL (0.2-1.0); CALCIUM 8.9 mg/dL (8.5-10.3); CREATININE 0.8 mg/dL (0.4-1.0)
--- NOTE | 2019-09-21 14:39 | XRAY Report ---
Reason: chest pain Procedure Date: 09/21/2019 Accession Number: [id number] / [id number] Procedure: XR - Chest 2 View X-Ray CPT Code: 94853 Final Report FULL RESULT: EXAM: CHEST RADIOGRAPHY EXAM DATE: 09/21/2019 02:10 PM. CLINICAL HISTORY: Chest pain. COMPARISON: CHEST 2 VIEW 09/14/2018 12:48 PM CHEST 2 VIEW 05/08/2018 10:53 AM. TECHNIQUE: 2 views. FINDINGS: Lungs/Pleura: Clear. No effusion or pneumothorax. Mediastinum: Heart and mediastinal contours are unremarkable. Upper lobe vessels not distended. Other: None. IMPRESSION: Normal 2-view chest radiography. [facility]
[2019-09-21 14:50] VITALS: BP 144/90
== END 2019-09-21 15:16 | disposition home or self-care (01) ==
LOC: ED 11:52
DX: R07.89 Other chest pain (principal); R05 Cough; M54.9 Dorsalgia, unspecified; J45.909 Unspecified asthma, uncomplicated; I10 Essential (primary) hypertension
CPT/HCPCS: 36415; 71046; 80053; 83690; 84484; 85025; 85379; 93005; 99284; A9270

== ENCOUNTER 2020-01-15 16:03 | Emergency (ER) | payer OTHER ==
--- NOTE | 2020-01-15 16:17 | ED Physician Documentation ---
<Mark Horan A - Last Filed: 01/15/20 18:51> PD HPI ABD PAIN - Stated complaint Stated Complaint: N/V, ABD PX - Chief complaint Chief Complaint: Abd Pain - History obtained from History obtained from: Patient - History of Present Illness Timing - onset: How many days ago (2-3 days of lower abd pain and nausea, which increased today with associated nausea and vomiting the past day. Feeling generally weak. She has had a very small stool output of dis-softish stool yesterday. She is concerned about a partial bowel obstruction. She had had similar symptoms in the past related to adhesions from endometriosis. She did have surgery for the obstruction. She is not feeling as pronounced of symptoms as that episode but along the same idea.) Timing - details: Abrupt onset, Still present Quality: Cramping, Aching, Dull. No: Fullness/distended Location: Periumbilical, LLQ Radiation: No: Chest, Lower back Worsened by: Eating (Attempt at oral intake leads to nausea and vomiting of bilious material.), Position (lying flat is worse). No: Breathing, Palpation Associated symptoms: Nausea, Vomiting. No: Fever, Constipation, Melena, Hematochezia Similar symptoms before: Diagnosis (bowel obstruction few years ago required surgery.) Review of Systems Constitutional: reports: Fatigue. denies: Fever, Chills, Myalgias Nose: denies: Rhinorrhea / runny nose, Congestion Throat: denies: Sore throat Cardiac: denies: Chest pain / pressure Respiratory: denies: Dyspnea, Cough GI: reports: Abdominal Pain, Nausea, Vomiting. denies: Abdominal Swelling, Hematemesis : denies: Dysuria, Frequency Musculoskeletal: denies: Neck pain, Back pain, Extremity pain, Extremity swelling Neurologic: reports: Generalized weakness. 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: Endometriosis : None HEENT: None Psych: Anxiety, Post traumatic stress disorder Musculoskeletal: None Derm: None - Past Surgical History Past Surgical History: Yes General: Other /DATABASE TECHNICIAN: section, Hysterectomy, Oophrectomy - Present Medications Home Medications: Ambulatory Orders Medication Instructions Recorded Confirmed Lisdexamfetamine Dimesylate 60 mg PO DAILY #15 capsule 10/11/15 09/02/17 [Vyvanse] Omeprazole [PriLOSEC] 20 mg PO DAILY 10/11/15 09/02/17 Fluticasone/Salmeterol [Advair 2 puffs INH DAILY 09/02/17 09/02/17 100-50 Diskus] Loratadine [Claritin] 1 tab PO DAILY 09/02/17 09/02/17 Montelukast [Singulair] 1 tab PO DAILY 09/02/17 09/02/17 buPROPion [Wellbutrin Sr] 1 tab PO DAILY 09/02/17 09/02/17 lisinopriL [Lisinopril] 10 mg PO 05/08/18 Doxycycline Hyclate 08/02/18 Sumatriptan Succinate [Imitrex] PRN 08/02/18 Albuterol 2.5 mg INH Q4H PRN #30 neb 09/14/18 predniSONE [Deltasone] 10 mg PO ONCE #26 tablet 09/14/18 guaiFENesin/CODEINE [Robitussin AC] 5 - 10 ml PO Q6H PRN #120 ml 09/21/19 Ondansetron Odt [Zofran Odt] 4 mg TL Q6H PRN #10 tablet 01/15/20 - Allergies Allergies/Adverse Reactions: Allergies Allergy/AdvReac Type Severity Reaction Status Date / Time seasonal allergies Allergy Unknown Uncoded 01/15/20 16:06 - Social History Does the pt smoke?: No Smoking Status: Never smoker Does the pt drink ETOH?: Yes Does the pt have substance abuse?: No - Immunizations Immunizations are current?: Yes Immunizations: TDAP >10years/unknown - POLST Patient has POLST: No PD ED PE NORMAL - Vitals Vital signs reviewed: Yes - General General: Alert and oriented X 3, No acute distress, Well developed/nourished - HEENT HEENT: Pharynx benign - Neck Neck: Supple, no meningeal sign, No adenopathy - Cardiac Cardiac: RRR, No murmur - Respiratory Respiratory: Clear bilaterally - Abdomen Abdomen: Soft, Other (Bowel sounds are present and slightly hyperactive. She is tender in the mid abdomen particularly and then the left lower quadrant without any peritoneal signs per se. Rectal exam was deferred. Tender right inguinal area without obvious hernia. ) - Back Back: No CVA TTP - Derm Derm: Normal color, Warm and dry - Extremities Extremities: No deformity, No tenderness to palpate - Neuro Neuro: Alert and oriented X 3, No motor deficit, Normal speech PD MEDICAL DECISION MAKING - ED course Complexity details: considered differential (Consider partial bowel obstruction versus diverticulitis or other process. ), d/w patient Departure - Departure Disposition: 01 Home, Self Care Clinical Impression: Lower abdominal pain Nausea and vomiting Qualifiers: Vomiting type: bilious vomiting Qualified Code(s): R11.14 - Bilious vomiting Condition: Stable Instructions: ED Abdominal Pain Unkn Cause Follow-Up: Biju Kurtz MD [Primary Care Provider] - Prescriptions: Ondansetron Odt [Zofran Odt] 4 mg TL Q6H PRN #10 tablet PRN Reason: Nausea / Vomiting Comments: call your physician tomorrow to schedule a follow up. take zofran as needed for nausea. Discharge Date/Time: 01/15/20 20:26 <Armin Padilla - Last Filed: 01/16/20 03:37> Results - Vitals Vitals: Vital Signs - 24 hr 01/15/20 01/15/20 01/15/20 16:06 16:10 18:10 Temperature 36.5 C 36.7 C Heart Rate 62 66 66 Respiratory 14 16 16 Rate Blood Pressure 154/85 H 150/80 H 140/88 H O2 Saturation 97 97 98 01/15/20 20:20 Temperature 36.6 C Heart Rate 52 L Respiratory 12 Rate Blood Pressure 157/107 H O2 Saturation 99 Oxygen O2 Source Room air - Labs Labs: Laboratory Tests 01/15/20 01/15/20 01/15/20 16:21 16:30 17:00 WBC 8.1 RBC 3.78 L Hgb 12.5 Hct 36.8 L MCV 97.4 MCH 33.1 H MCHC 34.0 RDW 12.2 Plt Count 237 MPV 9.1 Neut # (Auto) 5.7 Lymph # (Auto) 1.8 [place] # (Auto) 0.5 Eos # (Auto) 0.0 Baso # (Auto) 0.0 Absolute Nucleated RBC 0.00 Nucleated RBC % 0.0 Sodium Potassium Chloride Carbon Dioxide Anion Gap BUN Creatinine Estimated GFR (MDRD) Glucose Lactic Acid Calcium Magnesium Total Bilirubin AST ALT Alkaline Phosphatase Total Protein Albumin Globulin Albumin/Globulin Ratio Lipase Urine Color YELLOW Urine Clarity CLEAR Urine pH 6.5 Ur Specific [place] 1.025 1.025 Urine Protein NEGATIVE Urine Glucose (UA) NEGATIVE Urine Ketones TRACE Urine Occult Blood NEGATIVE Urine Nitrite NEGATIVE Urine Bilirubin NEGATIVE Urine Urobilinogen 0.2 (NORMAL) Ur Leukocyte Esterase NEGATIVE Ur Microscopic Review NOT INDICATED Urine Culture Comments NOT INDICATED Urine HCG, Qual NEGATIVE 01/15/20 01/15/20 17:00 17:00 WBC RBC Hgb Hct MCV MCH MCHC RDW Plt Count MPV Neut # (Auto) Lymph # (Auto) [place] # (Auto) Eos # (Auto) Baso # (Auto) Absolute Nucleated RBC Nucleated RBC % Sodium 134 L Potassium 3.5 Chloride 99 L Carbon Dioxide 25 Anion Gap 10.0 BUN 16 Creatinine 0.9 Estimated GFR (MDRD) 71 L Glucose 117 H Lactic Acid 0.6 Calcium 8.9 Magnesium 1.6 L Total Bilirubin 0.8 AST 26 ALT 19 Alkaline Phosphatase 41 L Total Protein 7.4 Albumin 4.2 Globulin 3.2 Albumin/Globulin Ratio 1.3 Lipase 35 Urine Color Urine Clarity Urine pH Ur Specific [place] Urine Protein Urine Glucose (UA) Urine Ketones Urine Occult Blood Urine Nitrite Urine Bilirubin Urine Urobilinogen Ur Leukocyte Esterase Ur Microscopic Review Urine Culture Comments Urine HCG, Qual PD MEDICAL DECISION MAKING - ED course Complexity details: other (patient signed out to me at shift change by dr. horan. 19:40 patient reexamined, CT A/P is unremarkable. patient reexamined. she is pain free currently. is reporting some nausea. will treat with IV phenergan 12.5 mg and dc home with close follow up with her physician tomorrow. will also provide prescription for zofran odt.)
[2020-01-15 16:36] LABS: BILIRUBIN,URINE NEGATIVE (NEGATIVE); GLUCOSE, URINE (UA) NEGATIVE (NEGATIVE); KETONES,URINE (UA) TRACE mg/dL (NEGATIVE); LEUKOCYTE ESTERASE, URINE NEGATIVE (NEGATIVE); NITRITE,URINE NEGATIVE (NEGATIVE); OCCULT BLOOD,URINE NEGATIVE (NEGATIVE); PH,URINE 6.5 PH (5.0-7.5); PROTEIN,URINE NEGATIVE (NEGATIVE); UROBILINOGEN,URINE 0.2 (NORMAL) E.U./dL (NORMAL)
[2020-01-15 16:39] LABS: CLARITY,URINE CLEAR (CLEAR)
[2020-01-15 16:40] LABS: HCG UR QUAL NEGATIVE
[2020-01-15] MEDS ORDERED: ONDANSETRON 4 MG/2 ML VIAL IVP STA (16:45)
[2020-01-15] MEDS ORDERED: SODIUM CHLORIDE 0.9% 1,000 ML IV STA (16:45)
[2020-01-15] MEDS ORDERED: fentaNYL 100 MCG/2 ML VIAL IVP STA (16:46)
[2020-01-15] MEDS ORDERED: FAMOTIDINE 20 MG/2 ML SYRINGE IVP STA (16:46)
[2020-01-15] MEDS ORDERED: diphenhydrAMINE INJ 50 MG/ML VIAL IVP STA (16:46)
[2020-01-15 17:05] LABS: BASOPHILS % (AUTO) 0.4 %; EOSINOPHILS % (AUTO) 0.5 %; HGB - HEMOGLOBIN 12.5 g/dL (12.0-16.0); LYMPHOCYTES # (AUTO) 1.8 10^3/uL (1.5-3.5); LYMPHOCYTES % (AUTO) 21.9 %; MEAN CORPUSCULAR HEMOGLOBIN 33.1 pg (27.0-31.0); MEAN CORPUSCULAR VOLUME 97.4 fL (81.0-99.0); MEAN PLATELET VOLUME 9.1 fL (7.9-10.8); MONOCYTES # (AUTO) 0.5 10^3/uL (0.0-1.0); MONOCYTES % (AUTO) 6.6 %; NEUTROPHILS # (AUTO) 5.7 10^3/uL (1.5-6.6); NEUTROPHILS % (AUTO) 70.4 %; PLT - PLATELET COUNT 237 10^3/uL (130-450); RED BLOOD COUNT 3.78 10^6/uL (4.20-5.40); RED CELL DISTRIBUTION WIDTH 12.2 % (12.0-15.0); WHITE BLOOD COUNT 8.1 x10^3/uL (4.8-10.8)
[2020-01-15] MEDS ORDERED: IOVERSOL 320 100 ML VIAL IVP ONE ×2 (17:14→19:00)
[2020-01-15 17:21] LABS: ALBUMIN 4.2 g/dL (3.2-5.5); ALBUMIN/GLOBULIN RATIO 1.3 (1.0-2.2); BILIRUBIN,TOTAL 0.8 mg/dL (0.2-1.0); CALCIUM 8.9 mg/dL (8.5-10.3); CREATININE 0.9 mg/dL (0.4-1.0); MAGNESIUM 1.6 mg/dL (1.7-2.8); TOTAL PROTEIN 7.4 g/dL (6.7-8.2)
[2020-01-15] MEDS ORDERED: IOVERSOL 320 50 ML VIAL ONE (17:43)
[2020-01-15] MEDS ORDERED: KETOROLAC 15 MG/ML VIAL IVP STA (17:55)
[2020-01-15] MEDS ORDERED: HYDROmorphone 1 MG/ML CARPUJECT IVP STA (17:55)
[2020-01-15] MEDS ORDERED: IOVERSOL 320 50 ML VIAL PO ONE (19:00)
--- NOTE | 2020-01-15 19:19 | CT Report ---
Reason: vomiting 2-3 days; concern for SBO. Procedure Date: 01/15/2020 Accession Number: [id number] / [id number] Procedure: CT - Abdomen/Pelvis W CPT Code: Final Report FULL RESULT: PROCEDURE: Abdomen/Pelvis W INDICATIONS: vomiting 2-3 days; concern for SBO. CONTRAST: IV CONTRAST: Optiray 320 ml: 100 PO CONTRAST: Optiray 320 ml50 TECHNIQUE: After the administration of oral and intravenous contrast, 5 mm thick sections acquired from the diaphragms to the symphysis. 5 mm thick coronal and sagittal reformats were acquired. For radiation dose reduction, the following was used: automated exposure control, adjustment of mA and/or kV according to patient size. COMPARISON: None. FINDINGS: Image quality: Excellent. ABDOMEN: Lung bases: Lung bases are clear. Heart size is normal. Solid organs: Liver and spleen are normal in size and enhancement. Gallbladder is distended without gallbladder wall thickening or fluid around the gallbladder. Biliary system is non dilated. Pancreas enhances normally. No adrenal nodules. Kidneys demonstrate normal size and enhancement, without hydronephrosis. Peritoneum and bowel: Bowel loops demonstrate normal wall thickness and caliber. No free fluid or air. Nodes and vessels: No retroperitoneal or mesenteric adenopathy by size criteria. Aorta and inferior vena cava are normal in size. Miscellaneous: No ventral hernias. PELVIS: Genitourinary: Bladder wall thickness is normal. Miscellaneous: No inguinal hernias or adenopathy. 3.5 cm right adnexal cyst. Uterus is surgically absent. Bones: No suspicious bony lesions. No vertebral body compression fractures. IMPRESSION: 1. No evidence acute abdominal process. Reviewed by: Fortunato Perdue MD on 01/15/2020 7:18 PM PDT Approved by: Fortunato Perdue MD on 01/15/2020 7:18 PM PDT Station ID: [id number]
[2020-01-15] MEDS ORDERED: PROMETHAZINE INJ 12.5 MG in SODIUM CHLORIDE 0.9% 50 ML IV STA (19:28)
[2020-01-15 20:20] VITALS: BP 157/107
== END 2020-01-15 20:26 | disposition home or self-care (01) ==
LOC: ED 16:03
DX: R10.30 Lower abdominal pain, unspecified (principal); R11.14 Bilious vomiting; I10 Essential (primary) hypertension
CPT/HCPCS: 36415; 74177; 80053; 81003; 81025; 83605; 83690; 83735; 85025; 96361; 96365; 96375; 99284; 99285; J1170; J1200; J7040; Q9967; 81001; 87086

== ENCOUNTER 2020-09-25 07:00 | Outpatient (CLI) | payer OTHER | END 2020-09-25 23:59 | disposition home or self-care (01) | LOC: COV 07:00 | PROVIDERS: ATTEND Surgery | DX: Z01.812 Encounter for preprocedural laboratory examination (principal); K43.2 Incisional hernia without obstruction or gangrene; Z20.822 Contact with and (suspected) exposure to COVID-19 ==

== ENCOUNTER 2020-09-29 07:25 | Day surgery (SDC) | payer OTHER ==
[~2020-09-29 07:25] MED LIST: ceFAZolin 2 GM/50 ML 2 GM/50 ML BAG IV ONE
[2020-09-29] MEDS ORDERED: LACTATED RINGERS 1,000 ML IV ONE ×2 (07:38→09:37)
[2020-09-29] MEDS ORDERED: LIDOCAINE 2%-EPI 1:100000 20 ML MDV ONE (08:10)
[2020-09-29] MEDS ORDERED: BUPIVACAINE 0.5% PF 30 ML VIAL ONE (08:11)
--- NOTE | 2020-09-29 08:25 | ANESTHESIA ---
Pre-Anesthesia VS, & Labs - Diagnosis Left lower quadrant incisional hernia - Procedure L incisional hernia repair Vital Signs: Temp Pulse Resp BP Pulse Ox 37.4 C 60 16 145/94 H 96 09/29/20 07:38 09/29/20 07:38 09/29/20 07:38 09/29/20 07:38 09/29/20 07:38 Height: 5 ft 4.5 in Weight (kg): 67.3 kg Body Mass Index: 25.0 BMI Classification: Overweight - NPO >8 hours - Is Patient ?: No - Lab Results Lab results reviewed: Yes Home Medications and Allergies Home Medications: Ambulatory Orders Albuterol 2 puffs INH Q4H PRN 09/22/20 Cholecalciferol [Vitamin D3] 25 mcg PO DAILY 09/22/20 Fluticasone/Salmeterol [Advair 250-50 Diskus] 1 each IH BID 09/22/20 Magnesium 250 mg PO DAILY 09/22/20 Multivitamin 1 each PO DAILY 09/22/20 Sertraline HCl [Zoloft] 100 mg PO DAILY 09/22/20 Omeprazole [PriLOSEC] 20 mg PO DAILY 10/11/15 Loratadine [Claritin] 1 tab PO DAILY 09/02/17 Sumatriptan Succinate [Imitrex] 50 mg PO PRN PRN 08/02/18 Albuterol 2 puffs INH Q4H PRN 09/22/20 Cholecalciferol [Vitamin D3] 25 mcg PO DAILY 09/22/20 Fluticasone/Salmeterol [Advair 250-50 Diskus] 1 each IH BID 09/22/20 Magnesium 250 mg PO DAILY 09/22/20 Multivitamin 1 each PO DAILY 09/22/20 Sertraline HCl [Zoloft] 100 mg PO DAILY 09/22/20 Allergies/Adverse Reactions: Allergies Allergy/AdvReac Type Severity Reaction Status Date / Time pollen extracts Allergy Intermediate Seasonal Verified 09/29/20 07:57 allergies morphine AdvReac Itching Verified 09/29/20 07:57 Anes History & Medical History - Anesthetic History Anesthesia Complications: reports: No previous complications Family history of Anesthesia Complications: Denies Family history of Malignant Hyperthermia: Denies - Medical History Cardiovascular: reports: Hypertension Pulmonary: reports: Asthma Gastrointestinal: reports: GERD, Other Urinary: reports: None Neuro: reports: None Musculoskeletal: reports: None Endocrine/Autoimmune: reports: None Blood Disorders: reports: None Skin: reports: None Smoking Status: Never smoker History of Cancer?: No - Surgical History General:  Gynecologic: section, Hysterectomy, Oophrectomy, Other Exam General: Alert, Oriented x3, Cooperative Dental: WNL Mouth Opening: Greater than 4 Fingerbreadths Neck Mobility: Normal Mallampati classification: I Thyromental Distance: 4-6 cm Respiratory: Lungs clear, Normal breath sounds, No respiratory distress Cardiovascular: Regular rate Neurological: Normal speech Mental/Cognitive Status: Alert/Oriented X3, Normal for patient Cognitive Status: Within normal limits Plan Anesthesia Type: General Consent for Procedure(s) Verified and Reviewed: Yes Code Status: Attempt Resuscitation ASA classification: 2-Mild systemic disease Is this case an emergency?: No
[2020-09-29] MEDS ORDERED: ePHEDrine 50 MG/ML VIAL IVP PRN (08:26)
[2020-09-29] MEDS ORDERED: NALOXONE 0.4 MG/ML VIAL IVP PRN (08:26)
[2020-09-29] MEDS ORDERED: ONDANSETRON 4 MG/2 ML VIAL IVP PRN ×2 (08:26→09:37)
[2020-09-29] MEDS ORDERED: fentaNYL 100 MCG/2 ML VIAL IVP PRN (08:26)
[2020-09-29] MEDS ORDERED: ATROPINE ABBOJECT 1 MG/10 ML SYRINGE IVP PRN (08:26)
[2020-09-29] MEDS ORDERED: MORPHINE 2 MG/ML CARPUJECT IVP PRN (08:26)
[2020-09-29] MEDS ORDERED: METOCLOPRAMIDE 10 MG/2 ML VIAL IVP PRN (08:26)
[2020-09-29] MEDS ORDERED: LIDOCAINE-MPF 2% 5 ML VIAL ONE (08:46)
[2020-09-29] MEDS ORDERED: PROPOFOL 200 MG/20 ML VIAL IVP ONE (08:46)
[2020-09-29] MEDS ORDERED: fentaNYL 100 MCG/2 ML VIAL ONE (08:47)
[2020-09-29] MEDS ORDERED: MIDAZOLAM 2 MG/2 ML VIAL ONE (08:47)
[2020-09-29] MEDS ORDERED: LACTATED RINGERS 1,000 ML IV SCH (09:00)
[2020-09-29] MEDS ORDERED: BUPIVACAINE 0.5% PF 30 ML VIAL INFIL ONE ×2 (09:11)
[2020-09-29] MEDS ORDERED: LIDOCAINE MPF 2%-EPI 1:200000 20 ML VIAL SUBQ ONE ×2 (09:11)
[2020-09-29] MEDS ORDERED: ceFAZolin 1 GM VIAL ONE (09:27)
--- NOTE | 2020-09-29 09:36 | OPERATIVE REPORT ---
Operative Report - General Procedure Date: 09/29/20 Planned Procedure: Left inguinal hernia repair Pre-Op Diagnosis: Left inguinal pain Procedure Performed: Left inguinal hernia repair Post Op Diagnosis: Left Indirect inguinal hernia - Procedure Note Primary Surgeon: Lawrence Anesthesia Provider: MELISA Rosado Anesthesia Technique: General LMA Pathology: None Estimated Blood Loss (mL): 5 Indications: Left inguinal pain with activity Findings: Moderate indirect left inguinal hernia Complications: None apparent - Other Other Information/Narrative: After obtaining informed consent, the patient is brought to the operating room and placed in the supine position on the operating table. Following successful induction of general endotracheal anesthesia, appropriate padding of all bony prominences, and placement of appropriate monitors, the abdomen was prepped and draped in the standard surgical fashion. A timeout was held per scope protocol. All elements of the surgical safety checklist were followed before, during, and after the procedure. We began the procedure by infiltrating a mixture of local anesthetics medial to the anterior superior iliac spine on the left. This was done to create an ileo- inguinal nerve block. We then selected a site for an incision in the left lower quadrant just superior and lateral to the right pubic tubercle. This area was anesthetized with additional local anesthetic and an incision was created here.The incision was carried down through the skin and subcutaneous tissue to reveal the fascia of the external oblique aponeurosis. Retractor was placed and the aponeurosis was opened in direction of its fibers. The anatomy of the inguinal canal was significantly altered by previous procedures. The ileoinguin al nerve was not identified with certainty. The round ligament was identified with the hernia sac. It was divided and the sac placed back into the abdominal cavity. The sac was in the indirect position. We elected to repair the hernia with a large Prolene hernia system mesh implant. This was dipped in Ancef containing solution and then deployed into the defect. The posterior leaflet was straightened and flattened in the preperitoneal space. The inferior aspect of the anterior leaflet was then sewn to Og's ligament medially. Laterally it was tucked under the external beak aponeurosis. The wound was checked for hemostasis and irrigated with warm saline solution. It was aspirated free of all fluid and particulate matter. The extra oblique aponeurosis was then closed with a running locking Vicryl suture Yue's fascia was closed with Vicryl suture and Monocryl stitches were placed in the skin. All sponge, needle, and instrument counts were correct at the conclusion of the case. The patient was allowed awaken from anesthesia without difficulty and taken to the postanesthesia care unit in good condition.
[2020-09-29] MEDS ORDERED: ACETAMINOPHEN 325 MG TABLET PO PRN (09:37)
[2020-09-29] MEDS ORDERED: oxyCODONE 5 MG TABLET PO PRN (09:37)
[2020-09-29] MEDS ORDERED: IBUPROFEN 600 MG TABLET PO PRN (09:37)
[2020-09-29] MEDS ORDERED: ACETAMINOPHEN 1,000 MG/100 ML 100 ML IV ONE ×2 (10:03→10:12)
[2020-09-29] MEDS ORDERED: oxyCODONE 5 MG TABLET ONE (10:51)
[2020-09-29 11:17] VITALS: BP 125/64
--- NOTE | 2020-09-29 13:43 | ANESTHESIA POST OP EVALUATION ---
Anesthesia Post Eval - Post Anesthesia Eval Vitals: Last Vital Signs Temp 36.4 C L 09/29/20 11:00 Pulse 74 09/29/20 11:00 Resp 16 09/29/20 11:00 BP 125/64 09/29/20 11:00 Pulse Ox 98 09/29/20 11:00 CV Function Including HR & BP: positive: Stable Pain Control: positive: Satisfactory Nausea & Vomiting: positive: Negative Mental Status: positive: Baseline Respiratory Status: Airway Patent Hydration Status: Satisfactory Anesthesia Complications: positive: None
== END 2020-09-29 07:26 | disposition home or self-care (01) ==
LOC: SDS 07:25
PROVIDERS: ATTEND Surgery
DX: K40.90 Unilateral inguinal hernia, without obstruction or gangrene, not specified as recurrent (principal); I10 Essential (primary) hypertension; K21.9 Gastro-esophageal reflux disease without esophagitis; Z79.899 Other long term (current) drug therapy; E66.3 Overweight; Z68.25 Body mass index [BMI] 25.0-25.9, adult; J45.40 Moderate persistent asthma, uncomplicated
CPT/HCPCS: 49505; A9270; C1781; J0131; J0690; J7120

== ENCOUNTER 2021-04-03 18:38 | Emergency (ER) | payer OTHER ==
[2021-04-03] MEDS ORDERED: SODIUM CHLORIDE 0.9% 1,000 ML IV STA (19:22)
--- NOTE | 2021-04-03 19:38 | ED Physician Documentation ---
History of Present Illness - Stated complaint Stated Complaint: FAINTED - Chief complaint Chief Complaint: Neuro - History obtained from History obtained from: Patient - History of Present Illness Timing: Yesterday Pain level max: 4 Pain level now: 2 - Additonal information Additional information: Patient is a 35-year-old female who states she was in the shower yesterday taking a hot shower when she turned to the temperature down to cold. She then began to feel lightheaded off-balance and next thing she knew she awoke in the tub. Patient states that she did pass out as a teenager. No history of seizures. She states that she did have a headache. Did not bite her tongue. No loss of bowel or bladder control. 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 : None HEENT: None Psych: Depression, Anxiety, Post traumatic stress disorder Musculoskeletal: None Derm: None - Past Surgical History Past Surgical History: Yes General:  /PLASTIC JOINT MAKER: section, Hysterectomy, Oophrectomy, Other - Present Medications Home Medications: Ambulatory Orders Medication Instructions Recorded Confirmed Lisdexamfetamine Dimesylate 60 mg PO DAILY #15 capsule 10/11/15 04/03/21 [Vyvanse] Omeprazole [PriLOSEC] 20 mg PO DAILY 10/11/15 04/03/21 Loratadine [Claritin] 1 tab PO DAILY 09/02/17 04/03/21 Albuterol 2 puffs INH Q4H PRN 09/22/20 04/03/21 Fluticasone/Salmeterol [Advair 1 each IH BID 09/22/20 04/03/21 250-50 Diskus] Sertraline HCl [Zoloft] 100 mg PO DAILY 09/22/20 04/03/21 - Allergies Allergies/Adverse Reactions: Allergies Allergy/AdvReac Type Severity Reaction Status Date / Time pollen extracts Allergy Intermediate Seasonal Verified 04/03/21 18:49 allergies morphine AdvReac Itching Verified 04/03/21 18:49 - Social History Does the pt smoke?: No Smoking Status: Never smoker Does the pt drink ETOH?: Yes Does the pt have substance abuse?: No - Immunizations Immunizations are current?: Yes Immunizations: TDAP >10years/unknown - POLST Patient has POLST: No PD ED PE NORMAL - Vitals Vital signs reviewed: Yes - General General: Alert and oriented X 3, No acute distress - HEENT HEENT: Moist mucous membranes - Neck Neck: Supple, no meningeal sign - Cardiac Cardiac: RRR, Strong equal pulses - Respiratory Respiratory: No respiratory distress, Clear bilaterally - Abdomen Abdomen: Soft, Non tender, Non distended - Derm Derm: Warm and dry - Extremities Extremities: No edema, No calf tenderness / cord - Neuro Neuro: Alert and oriented X 3, director of program management 2-12 intact, No motor deficit, No sensory deficit, Normal speech - Psych Psych: Normal mood, Normal affect Results - Vitals Vitals: Vital Signs - 24 hr 04/03/21 04/03/21 04/03/21 18:41 19:28 19:47 Temperature 36.6 C Heart Rate 72 52 L Respiratory 16 16 15 Rate Blood Pressure 164/98 H 141/95 H O2 Saturation 98 99 04/03/21 04/03/21 20:13 20:39 Temperature Heart Rate 55 L 65 Respiratory 16 19 Rate Blood Pressure 125/85 H 119/87 H O2 Saturation 99 100 Oxygen O2 Source Room air - EKG (time done) 1912 Rate: Rate (enter#) (54) Rhythm: NSR [place]: Normal Intervals: Normal [place] QRS: Normal Ischemia: Normal ST segments Other comments: Other comments (early R wave transition) - Labs Labs: Laboratory Tests 04/03/21 04/03/21 04/03/21 19:45 19:45 19:45 WBC 6.5 RBC 3.97 L Hgb 12.8 Hct 38.2 MCV 96.2 MCH 32.2 H MCHC 33.5 RDW 12.2 Plt Count 235 MPV 9.2 Neut # (Auto) 4.1 Lymph # (Auto) 1.8 [place] # (Auto) 0.4 Eos # (Auto) 0.1 Baso # (Auto) 0.0 Absolute Nucleated RBC 0.00 Nucleated RBC % 0.0 Sodium 139 Potassium 3.5 Chloride 107 Carbon Dioxide 24 Anion Gap 8.0 BUN 7 Creatinine 0.6 Estimated GFR (MDRD) 113 Glucose 76 Calcium 9.0 Total Bilirubin 0.8 AST 16 ALT 14 Alkaline Phosphatase 39 L Troponin I High Sens 5.3 Total Protein 6.9 Albumin 4.4 Globulin 2.5 Albumin/Globulin Ratio 1.8 Lipase 38 - Rads (name of study) cxr Radiology: Final report received, EMP read contemporaneously, See rad report (no acute abnormality) ct head Radiology: Final report received, EMP read contemporaneously, See rad report (no acute abnormality) PD MEDICAL DECISION MAKING - ED course Complexity details: reviewed results, re-evaluated patient, considered differential (No ST elevation DC, no aortic dissection, no PE, no tension pneumothorax, no aortic aneurysm), d/w patient ED course: Patient with what sounds like vasovagal syncope in the shower last night. She did have a mild headache here. Head CT, chest x-ray, EKG, laboratory testing are unremarkable. Headache resolved with Fioricet. Patient is otherwise asymptomatic currently. No findings on telemetry. We will have her follow-up with her doctor for further care. Patient counseled regarding signs and symptoms for which I believe and urgent re-evaluation would be necessary. Patient with good understanding of and agreement to plan and is comfortable going home at this time This document was made in part using voice recognition software. While efforts are made to proofread this document, sound alike and grammatical errors may occur. Departure - Departure Disposition: 01 Home, Self Care Clinical Impression: Syncope Qualifiers: Syncope type: vasovagal syncope Qualified Code(s): R55 - Syncope and collapse Condition: Good Instructions: ED Syncope Vasovagal Follow-Up: Coreen Sharif PA-C [Primary Care Provider] - Within 1 week Comments: Your testing is normal today. Please follow-up with your doctor for further care. Return if you worsen. Your EKG, telemetry, laboratory testing, head CT and chest x-ray do not show any acute abnormalities. Discharge Date/Time: 04/03/21 20:49
--- NOTE | 2021-04-03 19:40 | XRAY Report ---
PROCEDURE: Chest 1 View X-Ray INDICATIONS: syncope TECHNIQUE: One view of the chest was acquired. COMPARISON: None. FINDINGS: Surgical changes and devices: None. Lungs and pleura: No pleural effusions or pneumothorax. Lungs are clear. Mediastinum: Mediastinal contours appear normal. Heart size is normal. Bones and chest wall: No suspicious bony lesions. Overlying soft tissues appear unremarkable. IMPRESSION: No acute disease. Reviewed by: David Rutledge MD on 04/03/2021 7:39 PM PDT Approved by: David Rutledge MD on 04/03/2021 7:39 PM PDT Station ID: [id number]
[2021-04-03 19:49] LABS: BASOPHILS % (AUTO) 0.5 %; EOSINOPHILS # (AUTO) 0.1 10^3/uL (0.0-0.7); EOSINOPHILS % (AUTO) 1.2 %; HCT - HEMATOCRIT 38.2 % (37.0-47.0); HGB - HEMOGLOBIN 12.8 g/dL (12.0-16.0); LYMPHOCYTES # (AUTO) 1.8 10^3/uL (1.5-3.5); LYMPHOCYTES % (AUTO) 28.2 %; MEAN CORPUSCULAR HEMOGLOBIN 32.2 pg (27.0-31.0); MEAN CORPUSCULAR HGB CONC 33.5 g/dL (32.0-36.0); MEAN CORPUSCULAR VOLUME 96.2 fL (81.0-99.0); MEAN PLATELET VOLUME 9.2 fL (7.9-10.8); MONOCYTES # (AUTO) 0.4 10^3/uL (0.0-1.0); MONOCYTES % (AUTO) 6.4 %; NEUTROPHILS # (AUTO) 4.1 10^3/uL (1.5-6.6); NEUTROPHILS % (AUTO) 63.4 %; PLT - PLATELET COUNT 235 10^3/uL (130-450); RED BLOOD COUNT 3.97 10^6/uL (4.20-5.40); RED CELL DISTRIBUTION WIDTH 12.2 % (12.0-15.0); WHITE BLOOD COUNT 6.5 x10^3/uL (4.8-10.8)
--- NOTE | 2021-04-03 19:57 | CT Report ---
PROCEDURE: HEAD WO INDICATIONS: syncope, head injury TECHNIQUE: Noncontrast 4.5 mm thick angled axial sections acquired from the foramen magnum to the vertex. For r adiation dose reduction, the following was used: automated exposure control, adjustment of mA and/or kV according to patient size. COMPARISON: None. FINDINGS: Image quality: Excellent. CSF spaces: Basal cisterns are patent. No extra-axial fluid collections. Ventricles are normal in size and shape. Brain: No midline shift. No intracranial masses or hemorrhage. [place]-white matter interface is norm al. Skull and face: Calvarium and visualized facial bones are intact, without suspicious lesions. Sinuses: Moderate left maxillary sinus disease. Minimal right maxillary sinus because of thickening. IMPRESSION: No acute intracranial process. Bilateral maxillary sinus disease, left greater than right as above. Reviewed by: David Rutledge MD on 04/03/2021 7:55 PM PDT Approved by: David Rutledge MD on 04/03/2021 7:55 PM PDT Station ID: [id number]
[2021-04-03 20:06] LABS: ALBUMIN 4.4 g/dL (3.2-5.5); ALBUMIN/GLOBULIN RATIO 1.8 (1.0-2.2); BILIRUBIN,TOTAL 0.8 mg/dL (0.2-1.0); CREATININE 0.6 mg/dL (0.4-1.0); POTASSIUM 3.5 mmol/L (3.5-5.0); TOTAL PROTEIN 6.9 g/dL (6.7-8.2)
[2021-04-03] MEDS ORDERED: ONDANSETRON ODT 4 MG TABLET TL STA (20:34)
[2021-04-03] MEDS ORDERED: BUTALB/ACETAM/CAFF 50/325/40MG TABLET PO STA (20:34)
[2021-04-03 20:40] VITALS: BP 119/87
== END 2021-04-03 20:49 | disposition home or self-care (01) ==
LOC: ED 18:38
DX: R55 Syncope and collapse (principal); I10 Essential (primary) hypertension
CPT/HCPCS: 36415; 70450; 71045; 80053; 83690; 84484; 85025; 93005; 99284; A9270; Q0162

== ENCOUNTER 2021-08-09 09:38 | Emergency (ER) | payer OTHER ==
--- NOTE | 2021-08-09 09:48 | ED Physician Documentation ---
PD HPI NVD - Stated complaint Stated Complaint: NAUSEA, STOMACH PX - Chief complaint Chief Complaint: Abd Pain - History obtained from History obtained from: Patient - History of Present Illness Timing - onset: How many days ago (2) Timing - duration: Days (2) Timing - details: Gradual onset (Onset initially of nausea with vomiting on [place] which progressed to include left lower abdominal pain and some abdominal fullness. The nausea and vomiting persisted. Pain increased last night.), Still present Associated symptoms: Abdominal pain, Loss of appetite. No: Fever, Chest pain, Hematemesis, Near syncope / syncope Contributing factors: No: Sick contact, Bad food, Recent antibiotics Improved by: Vomiting Worsened by: Eating Similar symptoms before: Diagnosis (similar symptoms with incisional hernia in the past.) Recently seen: Not recently seen Review of Systems Constitutional: denies: Fever, Chills Nose: denies: Rhinorrhea / runny nose, Congestion Throat: denies: Sore throat Cardiac: denies: Chest pain / pressure Respiratory: denies: Dyspnea, Cough GI: reports: Abdominal Pain (left lower abd, has progressed to left side generally, crampy character.). denies: Constipation (last BM was 2-3 days ago), Diarrhea Skin: denies: Rash, Lesions Neurologic: reports: Generalized weakness. denies: Focal weakness, Numbness PD PAST MEDICAL HISTORY - Past Medical History Cardiovascular: Hypertension Respiratory: Asthma Neuro: None Endocrine/Autoimmune: None GI: GERD, Other STRATEGY LEAD: Endometriosis : None HEENT: None Psych: Depression, Anxiety, Post traumatic stress disorder Musculoskeletal: None Derm: None - Past Surgical History Past Surgical History: Yes General:  /STRATEGY LEAD: section, Hysterectomy, Oophrectomy (with right ovary still in place. ), Other - Present Medications Home Medications: Ambulatory Orders Medication Instructions Recorded Confirmed Lisdexamfetamine Dimesylate 60 mg PO DAILY #15 capsule 10/11/15 04/03/21 [Vyvanse] Omeprazole [PriLOSEC] 20 mg PO DAILY 10/11/15 04/03/21 Loratadine [Claritin] 1 tab PO DAILY 09/02/17 04/03/21 Albuterol 2 puffs INH Q4H PRN 09/22/20 04/03/21 Fluticasone/Salmeterol [Advair 1 each IH BID 09/22/20 04/03/21 250-50 Diskus] Sertraline HCl [Zoloft] 100 mg PO DAILY 09/22/20 04/03/21 Docusate Sodium 100Mg Capsule 100 mg PO DAILY #15 cap 08/09/21 [Colace 100Mg Capsule] HYDROcod/ACETAM 5/325 [[place] 5/325] 1 ea PO Q6H PRN #14 tablet 08/09/21 Naproxen 500 mg PO BID 7 Days #14 tab 08/09/21 Ondansetron Odt [Zofran] 4 mg TL Q6H PRN #20 tablet 08/09/21 - Allergies Allergies/Adverse Reactions: Allergies Allergy/AdvReac Type Severity Reaction Status Date / Time pollen extracts Allergy Intermediate Seasonal Verified 08/09/21 09:47 allergies morphine AdvReac Itching Verified 08/09/21 09:47 - Social History Does the pt smoke?: No Smoking Status: Never smoker Does the pt drink ETOH?: Yes Does the pt have substance abuse?: No - Immunizations Immunizations are current?: Yes Immunizations: TDAP >10years/unknown - POLST Patient has POLST: No PD ED PE NORMAL - Vitals Vital signs reviewed: Yes - General General: Alert and oriented X 3, Well developed/nourished, Other (appears in pain left abd) - HEENT HEENT: Moist mucous membranes, Pharynx benign - Neck Neck: Supple, no meningeal sign, No adenopathy - Cardiac Cardiac: RRR, No murmur - Respiratory Respiratory: Clear bilaterally - Abdomen Abdomen: Normal bowel sounds, Soft, Non distended, No organomegaly, Other (left sided abd tenderness without percussion nor rebound tenderness. No noted masses. Tender around left lower abd scar, but no hernia felt. ) Results - Vitals Vitals: Vital Signs - 24 hr 08/09/21 08/09/21 08/09/21 09:40 11:47 13:00 Temperature 36.5 C Heart Rate 67 65 52 L Respiratory 20 18 18 Rate Blood Pressure 165/102 H 97/62 148/100 H O2 Saturation 99 99 99 Oxygen O2 Source Room air - Labs Labs: Laboratory Tests 08/09/21 08/09/21 08/09/21 09:50 09:50 10:07 WBC 6.3 RBC 4.22 Hgb 13.7 Hct 40.2 MCV 95.3 MCH 32.5 H MCHC 34.1 RDW 12.5 Plt Count 310 MPV 9.2 Neut # (Auto) 5.4 Lymph # (Auto) 0.7 L [place] # (Auto) 0.2 Eos # (Auto) 0.0 Baso # (Auto) 0.0 Absolute Nucleated RBC 0.00 Nucleated RBC % 0.0 Sodium 139 Potassium 3.6 Chloride 102 Carbon Dioxide 24 Anion Gap 13.0 BUN 13 Creatinine 0.7 Estimated GFR (MDRD) 95 Glucose 135 H Calcium 9.6 Total Bilirubin 0.7 AST 19 ALT 17 Alkaline Phosphatase 48 Total Protein 8.2 Albumin 4.8 Globulin 3.4 Albumin/Globulin Ratio 1.4 Lipase 38 Urine Color DARK YELLOW Urine Clarity CLEAR Urine pH 6.5 Ur Specific [place] 1.025 Urine Protein TRACE Urine Glucose (UA) NEGATIVE Urine Ketones 40 H Urine Occult Blood TRACE-INTA Urine Nitrite NEGATIVE Urine Bilirubin NEGATIVE Urine Urobilinogen 0.2 (NORMAL) Ur Leukocyte Esterase NEGATIVE Ur Microscopic Review NOT INDICATED Urine Culture Comments NOT INDICATED - Rads (name of study) abd/pelvic CT Radiology: Prelim report reviewed (Intra-abdominal process to account for the pain. No signs of hernias. Noted is a right ovarian cyst measuring 4 cm which is comparable to her previous imaging.), See rad report PD MEDICAL DECISION MAKING - ED course Complexity details: reviewed results (abd/pelvic CT without obvious cause of pain.), considered differential, d/w patient Departure - Departure Disposition: 01 Home, Self Care Clinical Impression: Left sided abdominal pain Condition: Stable Record reviewed to determine appropriate education?: Yes Instructions: ED Abdominal Pain Female Non-Specific Abdominal Pain Follow-Up: Coreen Sharif PA-C [Primary Care Provider] - Prescriptions: Docusate Sodium 100Mg Capsule [Colace 100Mg Capsule] 100 mg PO DAILY #15 cap Naproxen 500 mg PO BID 7 Days #14 tab HYDROcod/ACETAM 5/325 [[place] 5/325] 1 ea PO Q6H PRN #14 tablet PRN Reason: Pain Ondansetron Odt [Zofran] 4 mg TL Q6H PRN #20 tablet PRN Reason: Nausea / Vomiting Comments: Your CT and labs did not show any obvious acute abnormality to account for the pain. No signs of incarcerated hernias or bowel obstruction. No signs of kidney stone. No obvious local inflammation of the intestine such as colitis. At this point I would assume your pain is from some inflammation related to adhesions or prior scar tissue that has loosened. This may have happened with some of the muscle use. I would suggest activity as tolerated with regular diet. Use some anti- inflammatories such as naproxen twice daily with food. Use ondansetron if needed for nausea. Docusate stool softener daily for the next week or so. Add Tylenol every 4-6 hours if needed for pain or hydrocodone if needed for worse pain. Recheck if not improving well over the next several days and resolved by 3 to 5 days or so. Return if worsening. I transmitted your prescriptions to the pharmacy. My narcotic instructions I am prescribing a short course of narcotic pain medication for you. These are potentially dangerous and addictive medications that should be used carefully. These medications may constipate you. Take an zfzs-wyz-weoaumw stool softener such as docusate twice daily with plenty of water while taking these medications. If you go 24 hours without a bowel movement, take ctgl-dkh-jgbvead MiraLAX, per package instructions. Do not drink or drive while taking these medications. If you received narcotic or sedating medications while in the emergency department do not drive for 24 hours. Store this medication in a safe, secure place and out of reach of children. It is a violation of federal law to give or sell this medication to another person or to use in a manner other than prescribed. The ED will not refill narcotic prescriptions, including prescriptions lost or stolen. You can dispose of unwanted medications at the [facility]'s office or at several pharmacies such as [facility]. Discharge Date/Time: 08/09/21 13:33
[2021-08-09] MEDS ORDERED: HYDROmorphone 1 MG/ML CARPUJECT IVP STA (10:03)
[2021-08-09] MEDS ORDERED: SODIUM CHLORIDE 0.9% 1,000 ML IV STA ×2 (10:03→11:59)
[2021-08-09] MEDS ORDERED: ONDANSETRON 4 MG/2 ML VIAL IVP STA (10:03)
[2021-08-09] MEDS ORDERED: diphenhydrAMINE INJ 50 MG/ML VIAL IVP STA (10:03)
[2021-08-09 10:12] LABS: BASOPHILS % (AUTO) 0.3 %; EOSINOPHILS % (AUTO) 0.2 %; HCT - HEMATOCRIT 40.2 % (37.0-47.0); HGB - HEMOGLOBIN 13.7 g/dL (12.0-16.0); LYMPHOCYTES # (AUTO) 0.7 10^3/uL (1.5-3.5); LYMPHOCYTES % (AUTO) 10.7 %; MEAN CORPUSCULAR HEMOGLOBIN 32.5 pg (27.0-31.0); MEAN CORPUSCULAR HGB CONC 34.1 g/dL (32.0-36.0); MEAN CORPUSCULAR VOLUME 95.3 fL (81.0-99.0); MEAN PLATELET VOLUME 9.2 fL (7.9-10.8); MONOCYTES # (AUTO) 0.2 10^3/uL (0.0-1.0); MONOCYTES % (AUTO) 2.4 %; NEUTROPHILS # (AUTO) 5.4 10^3/uL (1.5-6.6); NEUTROPHILS % (AUTO) 86.1 %; PLT - PLATELET COUNT 310 10^3/uL (130-450); RED BLOOD COUNT 4.22 10^6/uL (4.20-5.40); RED CELL DISTRIBUTION WIDTH 12.5 % (12.0-15.0); WHITE BLOOD COUNT 6.3 x10^3/uL (4.8-10.8)
[2021-08-09 10:14] LABS: GLUCOSE, URINE (UA) NEGATIVE (NEGATIVE); KETONES,URINE (UA) 40 mg/dL (NEGATIVE); LEUKOCYTE ESTERASE, URINE NEGATIVE (NEGATIVE); NITRITE,URINE NEGATIVE (NEGATIVE); OCCULT BLOOD,URINE TRACE-INTA (NEGATIVE); PH,URINE 6.5 PH (5.0-7.5); PROTEIN,URINE TRACE mg/dL (NEGATIVE); UROBILINOGEN,URINE 0.2 (NORMAL) E.U./dL (NORMAL)
[2021-08-09 10:15] LABS: CLARITY,URINE CLEAR (CLEAR)
[2021-08-09] MEDS ORDERED: IOPAMIDOL-300 100 ML VIAL ONE (10:18)
[2021-08-09 10:20] LABS: BILIRUBIN,URINE NEGATIVE (NEGATIVE); ICTOTEST,URINE NEGATIVE
[2021-08-09 10:22] LABS: ALBUMIN 4.8 g/dL (3.2-5.5); ALBUMIN/GLOBULIN RATIO 1.4 (1.0-2.2); BILIRUBIN,TOTAL 0.7 mg/dL (0.2-1.0); CALCIUM 9.6 mg/dL (8.5-10.3); CREATININE 0.7 mg/dL (0.4-1.0); POTASSIUM 3.6 mmol/L (3.5-5.0); TOTAL PROTEIN 8.2 g/dL (6.7-8.2)
[2021-08-09] MEDS ORDERED: IOPAMIDOL-300 100 ML VIAL IVP ONE (10:54)
--- NOTE | 2021-08-09 11:17 | CT Report ---
PROCEDURE: Abdomen/Pelvis W INDICATIONS: LLQ Abdominal pain, SBO/divertic CONTRAST: IV CONTRAST: Isovue 300 ml: 100 PO CONTRAST: *NO PO CONTRAST TECHNIQUE: After the administration of intravenous contrast, 5 mm thick sections acquired from the diaphragms to the symphysis. 5 mm thick coronal and sagittal reformats were acquired. For radiation dose reducti on, the following was used: automated exposure control, adjustment of mA and/or kV according to markie ent size. COMPARISON: CT abdomen/pelvis 01/15/2020 FINDINGS: Image quality: Excellent. ABDOMEN: Lung bases: Lung bases are clear. Heart size is normal. Solid organs: Liver and spleen are normal in size and enhancement. Gallbladder is unremarkable. Bi liary system is non dilated. Pancreas enhances normally. No adrenal nodules. Kidneys demonstrate n ormal size and enhancement, without hydronephrosis. Peritoneum and bowel: Bowel loops demonstrate normal wall thickness and caliber. Postsurgical change s of the cecal tip are most likely secondary to a prior appendectomy. No free fluid or air. Nodes and vessels: No retroperitoneal or mesenteric adenopathy by size criteria. Aorta and inferior vena cava are normal in size. Miscellaneous: No ventral hernias. PELVIS: Genitourinary: Bladder wall thickness is normal. Probable postsurgical changes from prior hysterect maribeth. A 4.2 x 3.0 cm cyst is seen in the right ovary (60/3), which has increased in size when compared to the CT from 01/15/2020.. The left ovary is not well-visualized. Miscellaneous: No inguinal hernias or adenopathy. Bones: No suspicious bony lesions. No vertebral body compression fractures. IMPRESSION: 1.No acute abnormality is seen in the abdomen or pelvis to account for the reported symptoms. No sign s of small bowel obstruction or diverticulitis. 2.Nonspecific 4.2 cm right ovarian cyst. A pelvic ultrasound could be obtained for further evaluation if indicated clinically. Reviewed by: Jordan Yanez MD on 08/09/2021 11:16 AM [facility] Approved by: Jordan Yanez MD on 08/09/2021 11:16 AM PST Station ID: [id number]
[2021-08-09] MEDS ORDERED: DOCUSATE SODIUM 100 MG CAPSULE PO STA (12:00)
[2021-08-09] MEDS ORDERED: HYDROmorphone 0.5 MG/0.5 ML SYRINGE IVP STA (12:00)
[2021-08-09] MEDS ORDERED: KETOROLAC 15 MG/ML VIAL IVP STA (12:00)
[2021-08-09 14:44] VITALS: BP 148/100
== END 2021-08-09 13:33 | disposition home or self-care (01) ==
LOC: ED 09:38
DX: R10.9 Unspecified abdominal pain (principal); N83.201 Unspecified ovarian cyst, right side
CPT/HCPCS: 36415; 74177; 80053; 81003; 83690; 85025; 96374; 96375; 99283; 99284; A9270; J1170; J1200; Q9967; 81001; 87086

== ENCOUNTER 2022-11-24 20:49 | Outpatient (CLI) | payer OTHER ==
--- NOTE | 2022-11-25 09:27 | Ultrasound Report ---
PROCEDURE: Pelvic Limited or F/U INDICATIONS: ABD MASS TECHNIQUE: Real-time transabdominal scanning was performed of the left inguinal region, with image documentation . COMPARISON: None. FINDINGS: Within the left inguinal region, at site of hernia repair, there is an echogenic region with posterio r shadowing measuring 1 x 0.8 cm. This is avascular. IMPRESSION: At the site of prior hernia repair, there is an echogenic lesion with posterior shadowi ng measuring 1.8 x 0.8 cm. Findings are probably postoperative (possibly representing a plug), as no recurrent hernia is definitely visualized. Reviewed by: Randy Gipson on 11/25/2022 9:25 AM PDT Approved by: Randy Gipson on 11/25/2022 9:25 AM PDT Station ID: [id number]
== END 2022-11-24 20:50 | disposition home or self-care (01) ==
LOC: DI 20:49
PROVIDERS: ATTEND Nurse Practitioner
DX: R19.00 Intra-abdominal and pelvic swelling, mass and lump, unspecified site (principal)

== ENCOUNTER 2023-03-29 09:33 | Emergency (ER) | payer OTHER ==
--- NOTE | 2023-03-29 09:46 | ED Physician Documentation ---
PD HPI ABD PAIN - Stated complaint Stated Complaint: ABD PX - Chief complaint Chief Complaint: Abd Pain - History obtained from History obtained from: Patient - History of Present Illness Timing - onset: How many weeks ago (patient with left hip/abdomen/iliac area pain for couple of weeks. Has been on and off but more consistent the pst few days. Has tried Tylenol periodically. Has had 2 days of left facial to ear pain now too. No chest nor upper abd pain in between.) Timing - duration: Weeks Timing - details: Gradual onset, Still present, Waxing and waning Quality: Aching, Dull, Pain Location: LLQ, Other (left iliac crest and lateral hip area. Pains with hip rotation. Pain radiates down medial left lower leg.) Radiation: No: Chest, Left flank Improved by: No: Laying still Worsened by: Moving, Position. No: Palpation Associated symptoms: No: Fever, Nausea, Vomiting, Dysuria, Vaginal bleeding Similar symptoms before: No diagnosis Recently seen: Clinic Review of Systems Constitutional: denies: Fever, Chills Nose: denies: Rhinorrhea / runny nose, Congestion Throat: denies: Sore throat Cardiac: denies: Chest pain / pressure Respiratory: denies: Cough GI: reports: Abdominal Pain (not upper abd but in left lower abd/pelvic area). denies: Nausea, Vomiting, Constipation, Diarrhea : denies: Dysuria, Frequency Skin: denies: Rash Neurologic: denies: Headache (has pain left face and left periauricular area the past 2 days. Some worse with mouth opening and chewing.) PD PAST MEDICAL HISTORY - Past Medical History Cardiovascular: Hypertension Respiratory: Asthma Neuro: None Endocrine/Autoimmune: None GI: GERD, Other CLINIC SUPERVISOR: Endometriosis : None HEENT: None Psych: Depression, Anxiety, Post traumatic stress disorder Musculoskeletal: None, Other (prior lumbar nerve ablation due to chronic back pain. ) Derm: None - Past Surgical History Past Surgical History: Yes General:  /CLINIC SUPERVISOR: section, Hysterectomy, Oophrectomy (with left ovary still in place. ), Other - Present Medications Home Medications: Ambulatory Orders Medication Instructions Recorded Confirmed Lisdexamfetamine Dimesylate 60 mg PO DAILY #15 capsule 10/11/15 04/03/21 [Vyvanse] Omeprazole [PriLOSEC] 20 mg PO DAILY 10/11/15 04/03/21 Loratadine [Claritin] 1 tab PO DAILY 09/02/17 04/03/21 Albuterol 2 puffs INH Q4H PRN 09/22/20 04/03/21 Fluticasone/Salmeterol [Advair 1 each IH BID 09/22/20 04/03/21 250-50 Diskus] Sertraline HCl [Zoloft] 100 mg PO DAILY 09/22/20 04/03/21 Docusate Sodium 100Mg Capsule 100 mg PO DAILY #15 cap 08/09/21 [Colace 100Mg Capsule] HYDROcod/ACETAM 5/325 [[place] 5/325] 1 ea PO Q6H PRN #14 tablet 08/09/21 Naproxen 500 mg PO BID 7 Days #14 tab 08/09/21 Ondansetron Odt [Zofran] 4 mg TL Q6H PRN #20 tablet 08/09/21 HYDROcod/ACETAM 5/325 [[place] 5/325] 1 ea PO Q6H PRN #14 tablet 03/29/23 Meloxicam [Mobic] 7.5 mg PO BID 10 Days #20 tablet 03/29/23 - Allergies Allergies/Adverse Reactions: Allergies Allergy/AdvReac Type Severity Reaction Status Date / Time pollen extracts Allergy Intermediate Seasonal Verified 08/09/21 09:47 allergies morphine AdvReac Itching Verified 08/09/21 09:47 - Social History Does the pt smoke?: No Smoking Status: Never smoker Does the pt drink ETOH?: Yes Does the pt have substance abuse?: No - Immunizations Immunizations are current?: Yes Immunizations: TDAP >10years/unknown - POLST Patient has POLST: No PD ED PE NORMAL - Vitals Vital signs reviewed: Yes - General General: Alert and oriented X 3, Well developed/nourished, Other (she seems uncomfortable and is standing preferentially, with some moving around of left hip and shuffling side to side. ) - HEENT HEENT: Ears normal, Moist mucous membranes, Pharynx benign, Dentition benign, Other (TMJ is not tender and has ROM without clicking. left face without rash nor tenderness. No adenopathy felt. ) - Neck Neck: Supple, no meningeal sign, No adenopathy - Cardiac Cardiac: RRR, No murmur - Respiratory Respiratory: Clear bilaterally - Abdomen Abdomen: Normal bowel sounds, Soft, Non distended, No organomegaly, Other (tender left lower abd with slight guarding. No percussion tenderness. Left lateral hip without tenderness. Iliac crest and SI area with some tenderness to palpation firmly. ) Results - Vitals Vitals: Vital Signs - 24 hr 03/29/23 03/29/23 09:37 11:42 Temperature 36.8 C 36.7 C Heart Rate 56 L 72 Respiratory 18 14 Rate Blood Pressure 153/80 H 136/96 H O2 Saturation 99 96 Oxygen O2 Source Room air - Labs Labs: Laboratory Tests 03/29/23 03/29/23 03/29/23 09:50 09:57 09:57 WBC 6.7 RBC 4.18 L Hgb 13.7 Hct 41.0 MCV 98.1 MCH 32.8 H MCHC 33.4 RDW 12.7 Plt Count 276 MPV 8.9 Neut # (Auto) 4.8 Lymph # (Auto) 1.4 L [place] # (Auto) 0.4 Eos # (Auto) 0.0 Baso # (Auto) 0.0 Absolute Nucleated RBC 0.00 Nucleated RBC % 0.0 ESR Sodium 138 Potassium 3.5 Chloride 103 Carbon Dioxide 26 Anion Gap 9.0 BUN 9 Creatinine 0.8 Estimated GFR (MDRD) 80 L Glucose 98 Calcium 9.5 Total Bilirubin 0.8 AST 16 ALT 12 Alkaline Phosphatase 46 C-Reactive Protein Total Protein 7.6 Albumin 4.7 Globulin 2.9 Albumin/Globulin Ratio 1.6 Lipase 28 Urine Color YELLOW Urine Clarity CLEAR Urine pH 6.0 Ur Specific [place] 1.015 Urine Protein NEGATIVE Urine Glucose (UA) NEGATIVE Urine Ketones TRACE Urine Occult Blood TRACE-INTA Urine Nitrite NEGATIVE Urine Bilirubin NEGATIVE Urine Urobilinogen 0.2 (NORMAL) Ur Leukocyte Esterase NEGATIVE Ur Microscopic Review NOT INDICATED Urine Culture Comments NOT INDICATED Urine HCG, Qual NEGATIVE 03/29/23 03/29/23 09:57 09:57 WBC RBC Hgb Hct MCV MCH MCHC RDW Plt Count MPV Neut # (Auto) Lymph # (Auto) [place] # (Auto) Eos # (Auto) Baso # (Auto) Absolute Nucleated RBC Nucleated RBC % ESR 1 Sodium Potassium Chloride Carbon Dioxide Anion Gap BUN Creatinine Estimated GFR (MDRD) Glucose Calcium Total Bilirubin AST ALT Alkaline Phosphatase C-Reactive Protein < 0.5 Total Protein Albumin Globulin Albumin/Globulin Ratio Lipase Urine Color Urine Clarity Urine pH Ur Specific [place] Urine Protein Urine Glucose (UA) Urine Ketones Urine Occult Blood Urine Nitrite Urine Bilirubin Urine Urobilinogen Ur Leukocyte Esterase Ur Microscopic Review Urine Culture Comments Urine HCG, Qual - Rads (name of study) pelvic US Relevant Findings:: Prelim report reviewed (left ovary missing, right with small cysts. No free fluid. s/p hyst. ), EMP independent interpretation of test PD Medical Decision Making - ED course Complexity details: reviewed results, considered differential (for left hip/back - seems somewhere perhaps pelvic, sacroiliiac, but not really lumbar spine per se. Radiation to left leg seems radicular. Can eval pelvis for ovary, get UA. The facial pain seems separate and facial/trigeminal nerve area. ), d/w patient ED course: I can't really connect the left hip/SI/pelvic pain with the new facial left pain. No chest/abd pain and no weaknesses in the area. Does not seem vascular. Consider multi-joint arthralgias perhaps and got ESR/CRP to eval for autoimmune processes. These were normal. I think perhaps most likely separate processes. The facial pain is facial and not headache. Starts around ear and some TMJ component but not tender there. Not throbbing/piercing per se, but could consider trigeminal neuralgia. No signs of shingles, weakness, rash, nor focal infections such as TM/sinus. The left hip pain seems sacroiliac area and pelvic. Consider sacroiliitis. Pain does not seem to start from lumbar per se, but has had prior back pain problems with nerve ablation she says. Can try NSAIDs and muscle relaxant. Pain meds short term. To follow up PCP for further eval/PT/etc. Departure - Departure Disposition: Home, Self Care Clinical Impression: Arthralgia of left side of pelvis, Left facial pain, Sciatic leg pain Condition: Stable Record reviewed to determine appropriate education?: Yes Follow-Up: Coreen Sharif PA-C [Primary Care Provider] - Prescriptions: Meloxicam [Mobic] 7.5 mg PO BID 10 Days #20 tablet HYDROcod/ACETAM 5/325 [[place] 5/325] 1 ea PO Q6H PRN #14 tablet PRN Reason: Pain Comments: Your basic blood test and including inflammatory markers called sed rate and C- reactive protein are normal. I do not feel otherwise I can connect the facial pain/headache with the hip/pelvic pain. It does not seem to be a immune related issue such as rheumatoid/lupus/etc. At this point I would suggest trying some anti-inflammatories regularly for the next 7 to 10 days. We will give a dose of a steroid anti-inflammatory here today and then I would have you continue a long-acting NSAID meloxicam twice daily with food for the next 7 to 10 days. To that add Tylenol 500 to 650 mg 4 times daily to help with pain. Substitute hydrocodone/acetaminophen if needed for worse pain. This would be intended periodically for worse pain in the short-term. Follow-up with your primary care next week, call for an appointment. At that point we would see how much better you are feeling with both issues. For the pelvic/back pain down the leg (sciatic/"pinched nerve"), adding in physical therapy or other medications such as muscle relaxant may be helpful and can be done through your primary care. For the facial pain, again see how much improved you are with the anti- inflammatories. If not improved completely then treatment could be attempted with medication targeted add a facial nerve irritation (trigeminal neuralgia). This sounds like that in character. I sent your prescriptions to the [facility] pharmacy here in [place]. I am prescribing a short course of narcotic pain medication for you. These are potentially dangerous and addictive medications that should be used carefully. These medications may constipate you. Take an dukh-hox-zhuoehq stool softener such as docusate twice daily with plenty of water while taking these medications. If you go 24 hours without a bowel movement, take uvqi-iri-[id number] MiraLAX, per package instructions. Do not drink or drive while taking these medications. If you received narcotic or sedating medications while in the emergency department do not drive for 24 hours. Store this medication in a safe, secure place and out of reach of children. It is a violation of federal law to give or sell this medication to another pers on or to use in a manner other than prescribed. The ED will not refill narcotic prescriptions, including prescriptions lost or stolen. You can dispose of unwanted medications at the [facility]'s office or at several pharmacies such as [place]. Forms: PCP List Discharge Date/Time: 03/29/23 13:10
[2023-03-29 10:02] LABS: BASOPHILS % (AUTO) 0.3 %; EOSINOPHILS % (AUTO) 0.5 %; HGB - HEMOGLOBIN 13.7 g/dL (12.0-16.0); LYMPHOCYTES # (AUTO) 1.4 10^3/uL (1.5-3.5); LYMPHOCYTES % (AUTO) 20.9 %; MEAN CORPUSCULAR HEMOGLOBIN 32.8 pg (27.0-31.0); MEAN CORPUSCULAR HGB CONC 33.4 g/dL (32.0-36.0); MEAN CORPUSCULAR VOLUME 98.1 fL (81.0-99.0); MEAN PLATELET VOLUME 8.9 fL (7.9-10.8); MONOCYTES # (AUTO) 0.4 10^3/uL (0.0-1.0); MONOCYTES % (AUTO) 5.6 %; NEUTROPHILS # (AUTO) 4.8 10^3/uL (1.5-6.6); NEUTROPHILS % (AUTO) 72.4 %; PLT - PLATELET COUNT 276 10^3/uL (130-450); RED BLOOD COUNT 4.18 10^6/uL (4.20-5.40); RED CELL DISTRIBUTION WIDTH 12.7 % (12.0-15.0); WHITE BLOOD COUNT 6.7 x10^3/uL (4.8-10.8)
[2023-03-29 10:14] LABS: BILIRUBIN,URINE NEGATIVE (NEGATIVE); GLUCOSE, URINE (UA) NEGATIVE (NEGATIVE); KETONES,URINE (UA) TRACE mg/dL (NEGATIVE); LEUKOCYTE ESTERASE, URINE NEGATIVE (NEGATIVE); NITRITE,URINE NEGATIVE (NEGATIVE); OCCULT BLOOD,URINE TRACE-INTA (NEGATIVE); PROTEIN,URINE NEGATIVE (NEGATIVE); UROBILINOGEN,URINE 0.2 (NORMAL) E.U./dL (NORMAL)
[2023-03-29 10:15] LABS: CLARITY,URINE CLEAR (CLEAR)
[2023-03-29 10:18] LABS: ALBUMIN 4.7 g/dL (3.2-5.5); ALBUMIN/GLOBULIN RATIO 1.6 (1.0-2.2); BILIRUBIN,TOTAL 0.8 mg/dL (0.2-1.0); CALCIUM 9.5 mg/dL (8.5-10.3); CREATININE 0.8 mg/dL (0.6-1.3); POTASSIUM 3.5 mmol/L (3.5-4.5); TOTAL PROTEIN 7.6 g/dL (6.4-8.9)
[2023-03-29 10:19] LABS: HCG UR QUAL NEGATIVE
[2023-03-29] MEDS ORDERED: IBUPROFEN 600 MG TABLET PO STA (10:24)
[2023-03-29] MEDS ORDERED: ACETAMINOPHEN 325 MG TABLET PO STA (10:24)
[2023-03-29] MEDS ORDERED: dexAMETHasone 4 MG TABLET PO STA (13:05)
[2023-03-29 13:15] VITALS: BP 136/96; O2SAT 96
--- NOTE | 2023-03-29 14:21 | Ultrasound Report ---
PROCEDURE: Pelvic w/Transvag+Doppler Comp INDICATIONS: pelvic pain, L TECHNIQUE: Real-time scanning was performed of the pelvic organs, with image documentation. Additional endovagi nal scanning was necessary due to incomplete visualization of the adnexal and endometrial structures by transabdominal scanning. Doppler interrogation was performed of the ovaries bilaterally. COMPARISON: 08/09/2021, 11/24/2022 FINDINGS: Uterus: Absent Ovaries: Left ovary is absent. Right ovarian volume is 11 cc. Multiple follicles are seen measuring u p to 1.6 cm. Color and spectral Doppler: flows are documented Other: No pathologic free fluid. IMPRESSION: No acute sonographic abnormality in the pelvis. Postsurgical changes. Reviewed by: Mark Aguirre MD on 03/29/2023 2:19 PM PDT Approved by: Mark Aguirre MD on 03/29/2023 2:19 PM PDT Station ID: [id number]
== END 2023-03-29 13:10 | disposition home or self-care (01) ==
LOC: ED 09:33
DX: M25.552 Pain in left hip (principal); M54.32 Sciatica, left side; R51.9 Headache, unspecified; I10 Essential (primary) hypertension
CPT/HCPCS: 36415; 76830; 76856; 80053; 81003; 81025; 83690; 85025; 85651; 86140; 93975; 99284; A9270; J8540; 81001; 87086

== ENCOUNTER 2023-06-10 09:39 | Emergency (ER) | payer OTHER ==
[2023-06-10] MEDS ORDERED: HYDROcod/ACETAM 5/325 MG TABLET PO STA (09:50)
--- NOTE | 2023-06-10 09:52 | ED Physician Documentation ---
PD HPI UPPER EXT INJURY - Stated complaint Stated Complaint: GLF - Chief complaint Chief Complaint: Trauma Ext - History obtained from History obtained from: Patient - Additonal information Additional information: Left-handed woman slipped on ice this morning onto an outstretched right wrist and has moderate wrist and hand pain. No other injuries. Took ibuprofen prior to arrival which was not particularly effective. PD PAST MEDICAL HISTORY - Past Medical History Cardiovascular: Hypertension Respiratory: Asthma Neuro: None Endocrine/Autoimmune: None GI: GERD, Other [employer]: Endometriosis : None HEENT: None Psych: Depression, Anxiety, Post traumatic stress disorder Musculoskeletal: None, Other Derm: None - Past Surgical History Past Surgical History: Yes General:  /[employer]: section, Hysterectomy, Oophrectomy, Other - Present Medications Home Medications: Ambulatory Orders Medication Instructions Recorded Confirmed Lisdexamfetamine Dimesylate 60 mg PO DAILY #15 capsule 10/11/15 04/03/21 [Vyvanse] Omeprazole [PriLOSEC] 20 mg PO DAILY 10/11/15 04/03/21 Loratadine [Claritin] 1 tab PO DAILY 09/02/17 04/03/21 Albuterol 2 puffs INH Q4H PRN 09/22/20 04/03/21 Fluticasone/Salmeterol [Advair 1 each IH BID 09/22/20 04/03/21 250-50 Diskus] Sertraline HCl [Zoloft] 100 mg PO DAILY 09/22/20 04/03/21 Docusate Sodium 100Mg Capsule 100 mg PO DAILY #15 cap 08/09/21 [Colace 100Mg Capsule] HYDROcod/ACETAM 5/325 [[place] 5/325] 1 ea PO Q6H PRN #14 tablet 08/09/21 Naproxen 500 mg PO BID 7 Days #14 tab 08/09/21 Ondansetron Odt [Zofran] 4 mg TL Q6H PRN #20 tablet 08/09/21 HYDROcod/ACETAM 5/325 [[place] 5/325] 1 ea PO Q6H PRN #14 tablet 03/29/23 Meloxicam [Mobic] 7.5 mg PO BID 10 Days #20 tablet 03/29/23 HYDROcod/ACETAM 5/325 [[place] 5/325] 1 - 2 tab PO Q6H PRN #10 tablet 06/10/23 - Allergies Allergies/Adverse Reactions: Allergies Allergy/AdvReac Type Severity Reaction Status Date / Time pollen extracts Allergy Intermediate Seasonal Verified 08/09/21 09:47 allergies morphine AdvReac Itching Verified 08/09/21 09:47 - Social History Does the pt smoke?: No Smoking Status: Never smoker Does the pt drink ETOH?: Yes Does the pt have substance abuse?: No - Immunizations Immunizations are current?: Yes Immunizations: TDAP >10years/unknown - POLST Patient has POLST: No PD ED PE NORMAL - Vitals Vital signs reviewed: Yes - General General: Alert and oriented X 3, No acute distress - Extremities Extremities: Other (She is tender over the carpals kind of diffusely on the right wrist but intact range of motion. Also tender over multiple metacarpals. Really nothing focal. No deformity.) - Neuro Neuro: Alert and oriented X 3, Normal speech - Psych Psych: Normal mood, Normal affect Results - Vitals Vitals: Vital Signs - 24 hr 06/10/23 09:43 Temperature 36.8 C Heart Rate 78 Respiratory 18 Rate Blood Pressure 140/98 H O2 Saturation 96 Oxygen O2 Source Room air - Rads (name of study) X-rays of the right wrist and hand are negative for fracture. Relevant Findings:: Final report received, EMP independent interpretation of test Departure - Departure Disposition: 01 Home, Self Care Clinical Impression: Right wrist sprain Qualifiers: Encounter type: initial encounter Qualified Code(s): S63.501A - Unspecified sprain of right wrist, initial encounter Sprain of right hand Qualifiers: Encounter type: initial encounter Qualified Code(s): S63.91XA - Sprain of unspecified part of right wrist and hand, initial encounter Condition: Good Record reviewed to determine appropriate education?: Yes Instructions: ED Sprain Hand, ED Sprain Wrist Prescriptions: HYDROcod/ACETAM 5/325 [[place] 5/325] 1 - 2 tab PO Q6H PRN #10 tablet PRN Reason: Pain Comments: Follow-up with your doctor in 1 week if not better, return for new or worsening symptoms. I sent your prescription electronically to the [facility] pharmacy at the corner of [facility] [address] [facility] here in [place]. I am prescribing a short course of narcotic pain medication for you. These are potentially dangerous and addictive medications that should be used carefully. These medications may constipate you. Take an tqlj-sfq-yofjdzn stool softener (docusate) twice daily with plenty of water while taking these medications. If you go 24 hours without a bowel movement, take ymdi-kec-rxeqlob miralax, per package instructions. Do not drink or drive while taking these medications. If you received narcotic or sedating medications while in the emergency department, do not drive for 24 hours. Store this medication in a safe, secure place and out of reach of children. It is a violation of federal law to give or sell this medication to another person or to use in a manner other than prescribed. The ED will not refill narcotic prescriptions, including prescriptions lost or stolen. To dispose of unwanted medications: 1. [facility] provides a drop box for medication in pill form only (no liquids) 8:00 am to 4:30 p.m. Tuesday-Tuesday in the lobby of the [facility], [address] [place] [address]. Empty pills into ziplock bag before disposal. Call [phone] for information. 2.[employer] is a free service available to all [facility] residents. Go to [email or web address] Note that many narcotic pain relievers also contain Tylenol/acetaminophen. Please ensure that your total dose of acetaminophen from all sources does not exceed 3 g (3000 mg) per day. Forms: PCP List, Activity restrictions
--- NOTE | 2023-06-10 10:14 | XRAY Report ---
PROCEDURE: Hand 3 View RT INDICATIONS: hand/wrist inj TECHNIQUE: 3 views of the hand(s) acquired. COMPARISON: None. FINDINGS: Bones: No fractures or dislocations. Normal alignment. Joint spaces are maintained. No suspicious b rachelle lesions. Soft tissues: No suspicious soft tissue calcifications or masses. No soft tissue swelling or radio paque foreign body. IMPRESSION: No acute bony abnormality. Reviewed by: Jaclyn Lind MD on 06/10/2023 10:13 AM PDT Approved by: Jaclyn Lind MD on 06/10/2023 10:13 AM PDT Station ID: [id number]
--- NOTE | 2023-06-10 10:15 | XRAY Report ---
PROCEDURE: Wrist 4 View RT INDICATIONS: hand/wrist inj TECHNIQUE: 3 views of the wrist were acquired. COMPARISON: None. FINDINGS: Bones: No fractures or dislocations. Normal alignment. Joint spaces are maintained. No suspicious b rachelle lesions. Soft tissues: No suspicious soft tissue calcifications or masses. No soft tissue swelling or radiop aque foreign body. IMPRESSION: No acute bony abnormality. If there is point tenderness of the scaphoid, consider repeat radiograph i n 7-10 days. Reviewed by: Jaclyn Lind MD on 06/10/2023 10:14 AM PDT Approved by: Jaclyn Lind MD on 06/10/2023 10:14 AM PDT Station ID: [id number]
[2023-06-10 10:39] VITALS: BP 141/95; O2SAT 97
== END 2023-06-10 10:35 | disposition home or self-care (01) ==
LOC: ED 09:39
DX: S63.501A Unspecified sprain of right wrist, initial encounter (principal); S63.91XA Sprain of unspecified part of right wrist and hand, initial encounter; W00.0XXA Fall on same level due to ice and snow, initial encounter; I10 Essential (primary) hypertension; Z79.899 Other long term (current) drug therapy; Z79.51 Long term (current) use of inhaled steroids
CPT/HCPCS: 73110; 73130; 99283; 99284; A9270